=== PATIENT | male | born 1955 | race Caucasian/White ===

== ENCOUNTER → 2017-08-30 11:45 | Outpatient (CLI) | payer BC, SELFPAY ==
--- NOTE | 2017-08-30 11:55 | XR_ITS ---
XR hip LT 2-3V w/pelvis HISTORY: ITS.REASON: LEFT HIP PAIN ORDERING PHYSICIAN: Thania Baker PATIENT AGE: 62 years FINDINGS: No fracture or dislocation is evident. Mild to moderate osteoarthritic changes are present involving the left hip with decrease in the joint space and osteophyte formation. Subcortical cystic change involves the acetabulum laterally. IMPRESSION: Mild to moderate osteoarthritis of left hip
--- NOTE | 2017-08-30 11:56 | XR_ITS ---
XR femur LT 2V CLINICAL INDICATION: ITS.REASON: LEFT HIP PAIN ORDERING PHYSICIAN: Thania Baker PATIENT AGE: 62 years FINDINGS: Mild to moderate osteoarthritic changes are present involving the left hip. No fracture or dislocation. Osteoarthritic changes are present at the knee. No fracture or dislocation. No lytic or blastic change. IMPRESSION: Osteoarthritis of the hip and left knee. No acute findings
== END ==
PROVIDERS: PCP Family Medicine; Visit Provider Nurse Practitioner Family
DX: M25.552 Pain in left hip (principal)
CPT/HCPCS: 73502; 73552

== ENCOUNTER → 2019-03-31 14:05 | Outpatient (CLI) | payer BC, SELFPAY ==
--- NOTE | 2019-03-31 14:08 | CT_ITS ---
PROCEDURE: CT LUNG SCREENING CLINICAL INDICATION: H/O NICOTINE DEPENDENCE Forty-two pack-year smoking history, asymptomatic for lung cancer COMPARISON: No exams were available for comparison TECHNIQUE: The exam was performed on a GE Light Speed [address] scanner using 2.90 mGy CTDI. A low dose helical CT CHEST was performed on a multi-detector scanner. All CT scans at the facility use one or more dose reduction, viz: automated exposure control, ma/kV adjustment per patient size (including targeted exams where dose is matched to indication, i.e. head), or iterative reconstruction technique. The LDCT was performed in a facility that meets the criteria for the screening program. Data regarding this exam was submitted to ACR which is an approved registry. The order for this exam indicates that it came as a result of a lung cancer screening counseling shard decision-making visit that included all the elements required of such a visit including smoking cessation. The radiologist interpreting this exam meets the CMS criteria for the LDCT lung cancer screening program. The exam is reported using the Lung-RADS classification scale and reported to the ACR registry. NOTE: This study was performed for the specific purposes of lung cancer screening and is not an alternative to diagnostic chest CT. RADIATION DOSE: CTDI vol(CT dose Index-volume) = 2.90mG DLP (Dose Length Product) = 106.55 mGcm FINDINGS: Changes of COPD. 4 mm subpleural nodule right upper lobe anteriorly, 7 mm fissural nodule right minor fissure, patchy opacity right lung base anteriorly with ground-glass and semi solid component with some a solid component measuring approximately 5 mm.. Calcified granuloma left upper lobe OTHER FINDINGS: No other pertinent findings evident. IMPRESSION: Lung rads category 3 probably benign findings. Recommend six-month CT follow-up Dictated by: Earnest Mckeon MD 04/01/2019 05:54 Electronically signed by Earnest Mckeon MD in [place] 04/02/2019 07:34
== END ==
PROVIDERS: PCP Family Medicine; Visit Provider Family Medicine
DX: Z87.891 Personal history of nicotine dependence (principal); Z12.2 Encounter for screening for malignant neoplasm of respiratory organs

== ENCOUNTER 2020-06-22 19:06 | Emergency (ER) | payer BC, SELFPAY ==
[2020-06-22 19:15] VITALS: BP 127/87; PULSE 83; RESP 18; TEMP 37; O2SAT 98; BMI 33.5
--- NOTE | 2020-06-22 19:29 | ED_ITS ---
[facility] [place] Clinical Impression: Exposure to COVID-19 virus Disposition: Home, Self-Care Condition on Discharge: Good Instructions: Preventing the Spread of Coronavirus Discharge Instructions Additional Instructions: You have been tested for COVID19. Please isolate as if you are positive until test results received. Referrals: Turner Reynaga MD [Primary Care Provider] - Time of Disposition: 19:31 Medical Decision Making - Lm Inquiry Pt receiving controlled substance: No Orders (Tests/Meds): ORDERS Category Date Time Status Covid-19 Nasal PCR ([facility]) Routine Lab 06/22/20 19:11 [place]dered [facility] [place] - General Stated complaint: covid test Time Seen by Provider: 06/22/20 19:29 - History of Present Illness Provider Complaint: Runny nose, sneezing, sore throat and loss of taste and smell since last night. No fever. Has had COVID19 exposure at work. Onset (ago): day(s) (1) Relieving factors: none Exacerbating factors: none Associated symptoms: denies other symptoms Treatments prior to arrival: none [facility] History - Hepatitis A Screen Attestation statement:: This patient has been screened for Hepatitis A risk factors. I have reviewed the patient's past medical history: Yes ROS Obtained: Yes All systems reviewed & no additional complaints - Constitutional Constitutional: Reports headache(s) - ENT Ears, Nose, Mouth, and Throat: Reports nasal congestion, Reports other (loss of taste and smell) Physical Exam - General General appearance: alert, in no apparent distress - Head Head exam: normocephalic - Eye Eye exam: Present: PERRL - Respiratory Respiratory exam: Present: normal lung sounds bilaterally - Cardiovascular Cardiovascular exam: Present: regular rate, normal rhythm - Neurological Exam Neurological exam: Present: alert, oriented X3 - Psychiatric Psychiatric exam: Present: normal affect, normal mood - Skin Skin exam: Present: warm, dry, intact
[2020-06-22 19:42] VITALS: BP 127/87; PULSE 83; RESP 18; TEMP 37; O2SAT 98
--- NOTE | 2020-06-23 09:39 | PC.NURSE ---
pt notified of positive covid test
== END 2020-06-22 19:43 | disposition home or self-care (01) ==
PROVIDERS: Emergency Provider Physician Assistant; PCP Family Medicine
DX: U07.1 COVID-19 (principal)
CPT/HCPCS: 99202; G0463; U0003

== ENCOUNTER → 2021-02-12 08:32 | Outpatient (CLI) | payer BC, SELFPAY ==
--- NOTE | 2021-02-12 08:43 | XR_ITS ---
PROCEDURE: XR CHEST 2V CLINICAL HISTORY: HX OF BORDERLINE HIGH BLOOD PRESSURE COMPARISON: No exams were available for comparison FINDINGS: The cardiomediastinal silhouette and pulmonary vascularity are within normal limits. The lungs are clear without infiltrates, suspicious nodules, or pleural effusions. Calcified granuloma is present in the left midlung laterally. No acute bony findings. IMPRESSION: No acute finding Dictated by: Earnest Mckeon MD 02/12/2021 13:48 Earnest Mckeon MD in [place] 02/12/2021 13:48
[2021-02-12 08:56] LABS: Microscopic, Urine URINE MICROSCOPIC (MICROSCOPIC)
[2021-02-12 09:26] LABS: Basophils # 0.1 K/mm3 (0-0.2); Basophils % 0.7 % (0.1-2.0); Eosinophils # 0.3 K/mm3 (0.0-0.4); Eosinophils % 2.6 % (0.1-12.0); Hemoglobin 17.2 g/dL (14.1-18.0); Lymphocytes # 2.7 K/mm3 (0.7-4.5); Mean Corpuscular HGB Conc 33.7 g/dL (31.8-35.4); Mean Corpuscular Volume 95.1 fl (80-94); Monocytes # 0.4 K/mm3 (0.1-1.0); Neutrophils # 6.5 K/mm3 (1.8-7.8); Neutrophils % 65.8 % (37.0-80.0); Platelet Count 320 K/mm3 (142-424); Red Blood Count 5.37 M/mm3 (4.60-6.20); Red Cell Distribution Width 12.3 % (11.5-17.5); White Blood Count 9.9 K/mm3 (4.8-10.8)
--- NOTE | 2021-02-12 09:26 | ECG_ITS ---
APPROVED REPORT Exam: Resting ECG HR:69 bpm ECG Measurements Heart Rate [address] 176 P 46 QRSd 78 QRS 21 QT 398 T 91 QTc 426 Conclusion Normal sinus rhythm Isolated q in iii Abnormal ECG Electronically signed by : Geoff Santoro MD 02/12/2021 11:18:01
[2021-02-12 09:48] LABS: Activated Partial Thrombo Time 25.3 seconds (22.5-28.5); INR 0.95 (0.9-1.1); Prothrombin Time 10.1 seconds (9.2-12.1)
[2021-02-12 10:00] LABS: Appearance,Urine CLEAR (Clear); Bilirubin,Urine Negative (Negative); Blood, Urine TRACE-I (Negative); Color,Urine YELLOW (Yellow); Glucose,Urine (UA) Negative (Negative); Ketones,Urine Negative (Negative); Leukocyte Esterase,Urine Negative (Negative); Nitrate,Urine Negative (Negative); PH,Urine 5.5 (5.0-8.5); Protein,Urine Negative (Negative); Specific Gravity, Urine >= 1.030 (1.005-1.030); Urobilinogen,Urine 0.2 EU/dl (0.2)
[2021-02-12 10:38] LABS: RBC,Urine Occasional #/hpf (0-3); Squamous Epithelial Cell,Urine Occasional #/hpf (0-5)
[2021-02-12 10:44] LABS: Alanine Aminotransferase 39 U/L (12-78); Albumin Level 4.4 g/dl (3.5-5.0); Albumin/Globulin Ratio 1.5 (1.1-1.8); Alkaline Phosphatase 97 U/L (38-126); Anion Gap 13.9 mEq/L (5-15); Aspartate Amino Transferase 26 U/L (17-59); Bilirubin,Total 1.1 mg/dl (0.2-1.3); Blood Urea Nitrogen 20 mg/dl (9-20); Calcium 9.5 mg/dl (8.4-10.2); Carbon Dioxide 28 mmol/L (22.0-30.0); Chloride 105 mmol/L (98-107); Estimated Glomerular Filt Rate 75 ml/min (>60); GFR (African American) 91 ML/MIN (>60); Glucose 100 mg/dl (74-100); Potassium 4.9 mmoL/L (3.5-5.1); Sodium 142 mmol/L (136-145); Total Protein,Serum 7.4 g/dl (6.3-8.2)
[2021-02-13 11:28] LABS: Hemoglobin A1C 5.6 % (4.0-6.0)
[2021-02-14 12:17] LABS: Prealbumin 26 mg/dL (10-36)
[2021-02-15 09:24] LABS: Miscellaneous Test 233
== END ==
PROVIDERS: PCP Family Medicine; Visit Provider Family Medicine
DX: Z01.818 Encounter for other preprocedural examination (principal)
CPT/HCPCS: 36415; 71046; 80053; 81001; 83036; 84134; 85025; 85610; 85730; 93005

== ENCOUNTER → 2021-03-26 07:47 | Outpatient (CLI) | payer BC, SELFPAY ==
[2021-03-26 08:28] LABS: Basophils # 0.1 K/mm3 (0-0.2); Eosinophils # 0.3 K/mm3 (0.0-0.4); Eosinophils % 3.3 % (0.1-12.0); Hematocrit 49.1 % (42.0-52.0); Hemoglobin 16.3 g/dL (14.1-18.0); Lymphocytes # 2.2 K/mm3 (0.7-4.5); Lymphocytes % 28.1 % (10-50); Mean Corpuscular HGB Conc 33.1 g/dL (31.8-35.4); Mean Corpuscular Hemoglobin 32.2 pg (27.0-31.2); Mean Corpuscular Volume 97.1 fl (80-94); Mean Platelet Volume 8.6 fl (7.4-10.4); Monocytes # 0.4 K/mm3 (0.1-1.0); Monocytes % 4.7 % (1.7-9.3); Neutrophils # 4.9 K/mm3 (1.8-7.8); Platelet Count 277 K/mm3 (142-424); Red Blood Count 5.06 M/mm3 (4.60-6.20); Red Cell Distribution Width 13.2 % (11.5-17.5); White Blood Count 7.7 K/mm3 (4.8-10.8)
[2021-03-26 08:33] LABS: Activated Partial Thrombo Time 26.9 seconds (22.8-30.6); INR 0.96 (0.9-1.1); Prothrombin Time 10.9 seconds (10.1-12.5)
[2021-03-26 08:38] LABS: Alanine Aminotransferase 60 U/L (12-78); Albumin Level 4.5 g/dl (3.5-5.0); Albumin/Globulin Ratio 1.7 (1.1-1.8); Alkaline Phosphatase 99 U/L (38-126); Anion Gap 12.5 mEq/L (5-15); Aspartate Amino Transferase 28 U/L (17-59); Bilirubin,Total 1.2 mg/dl (0.2-1.3); Blood Urea Nitrogen 23 mg/dl (9-20); Calcium 9.8 mg/dl (8.4-10.2); Carbon Dioxide 26 mmol/L (22.0-30.0); Chloride 104 mmol/L (98-107); Estimated Glomerular Filt Rate 75 ml/min (>60); GFR (African American) 91 ML/MIN (>60); Globulin 2.7 g/dL (1.3-3.2); Glucose 108 mg/dl (74-100); Potassium 4.5 mmoL/L (3.5-5.1); Sodium 138 mmol/L (136-145); Total Protein,Serum 7.2 g/dl (6.3-8.2)
[2021-03-27 08:23] LABS: Prealbumin 27 mg/dL (10-36)
== END ==
PROVIDERS: Visit Provider Orthopaedic Surgery
DX: Z01.812 Encounter for preprocedural laboratory examination (principal); D69.9 Hemorrhagic condition, unspecified
CPT/HCPCS: 36415; 80053; 83036; 84134; 85025; 85610; 85730

== ENCOUNTER → 2023-02-25 12:49 | Outpatient (CLI) | payer BC, MEDICARE, SELFPAY | PROVIDERS: PCP Family Medicine; Visit Provider Family Medicine | DX: G47.10 Hypersomnia, unspecified (principal); R06.83 Snoring; R03.0 Elevated blood-pressure reading, without diagnosis of hypertension; E66.9 Obesity, unspecified; Z68.37 Body mass index [BMI] 37.0-37.9, adult | CPT/HCPCS: G0399 ==

== ENCOUNTER → 2023-03-02 14:53 | Outpatient (POV) | payer BC, MEDICARE, SELFPAY | PROVIDERS: Visit Provider Dermatology | DX: Z00.00 Encounter for general adult medical examination without abnormal findings (principal) ==

== ENCOUNTER 2024-08-09 06:07 | Day surgery (SDC) | payer BC, SELFPAY ==
[2024-08-07 16:06] VITALS: BMI 35.9
[2024-08-09 06:22] VITALS: BP 138/91; PULSE 102; RESP 18; TEMP 36.4; O2SAT 96
--- NOTE | 2024-08-09 06:45 | EXP.ANES.CKL ---
[facility] Disclaimer: The information contained in this section may have been updated after the patient was seen, as this information can be updated by other users. Medical History Hypertension Surgical History History of bilateral knee replacement Family History Other No significant family history Social History (Updated 08/09/24 @ 06:27 by Kay Edwards RN) Smoking Status: Current every day smoker alcohol intake: never substance use type: denies use current occupational status: employed Travel in the last 8 weeks: None caffeine: Yes [facility] Anesthesia Checklist Patient Identification Patient Identification: Arm Band and Family Structural Data Admitted From: Home Planned Operative Procedure/s: Colonoscopy Consent for Planned Operative Procedure(s) Verified: Yes Verified Documents: Surgical Consent and History and Physical NPO Status Verified Time NPO: 00:00 Additional verifications Patient : No Anesthesia Reactions: No Hx Blood Transfusions: No Blood Transfusion Reaction: No Cephalosporin Allergy: No Previous Colonoscopy: No Airway Assessment Mallampati Score:: Class II C-Spine Mobility Assessed: Yes TMJ Mobility Assessed: Yes Neurological Assessment Level of Consciousness: Awake, Alert, Appropriate and Follows Commands Hx Seizures: No Numbness or tingling in extremities: No Anesthesia Plan Anesthesia Risk discussed: Yes ASA Class: II Anesthesia Type: MAC
[2024-08-09] MEDS: LACTATED RINGERS 1000ML 1,000 ML 50 ML IV (07:01)
--- NOTE | 2024-08-09 07:48 | EXP.HP ---
History of Present Illness *Admission Date: 08/09/24 *Reason for visit:: Screening *History of present illness: Mr. Orlando is a 69-year-old gentleman who is here for initial screening colonoscopy. The examination is deemed medically necessary for screening colonoscopy. The patient has been seen, interviewed and examined prior to the procedure by both myself and the anesthesia provider. [facility] Disclaimer: The information contained in this section may have been updated after the patient was seen, as this information can be updated by other users. Medical History (Updated 08/09/24 @ 07:49 by Guille Olmstead II, MD) Hypertension Surgical History History of bilateral knee replacement Family History Other No significant family history Social History (Updated 08/09/24 @ 06:47 by Geoffrey Martins CRNA) Smoking Status: Current every day smoker alcohol intake: never substance use type: denies use current occupational status: employed Travel in the last 8 weeks: None caffeine: Yes Have you lived/traveled outside US in past 30 days?: No Contact w/someone who lives/traveled outside US past 30 days?: No Exposure to someone with infectious disease in past 14 days?: No Do you have a fever (greater than 100.4 F or 38 C)?: No Have you tested positive for COVID-19: No Exposed to someone with COVID-19 in past 14 days?: No Do you have a sore throat?: No Do you have a cough?: No Do you have any weakness?: No Are you experiencing any nausea/vomitting?: No Do you have any diarrhea?: No Are you experiencing any unusual bleeding?: No Do you have any muscle aches/pain?: No Do you have any abdominal pain?: No Are you experiencing loss of taste or smell?: No Review of Systems Review of Systems Review of systems (narrative): Negative *Cardiovascular Comments: Negative *Gastrointestinal Comments: Negative *Genitourinary Comments: Negative *Musculoskeletal Comments: Negative *Neurologic Comments: Negative Meds Home Medications and Allergies Home Medications ?Medication ?Instructions ?Recorded ?Confirmed ?Type sodium sul 1.479 gram-potas ch See Rx Instructions PO PER PKG DIR 07/26/24 Rx 0.188 gram-magnes sul 0.225 gram colonscopy #24 tabs tablet (Sutab) lisinopril 10 mg tablet 10 mg PO DAILY 08/07/24 08/09/24 History loratadine 10 mg tablet (Claritin) 10 mg PO DAILY 08/09/24 08/09/24 History montelukast 10 mg tablet 10 mg PO DAILY 08/09/24 08/09/24 History (Singulair) New Prescriptions to Start Prescriptions: Allergies Allergy/AdvReac Type Severity Reaction Status Date / Time No Known Allergies Allergy Verified 08/09/24 06:19 Exam Data for Last 24 hours Vital signs and Labs for Last 24 Hours: Temp Pulse Resp BP Pulse Ox O2 Del Method 97.6 F 102 H 18 138/91 H 96 Room Air 08/09/24 06:22 08/09/24 06:22 08/09/24 06:22 08/09/24 06:22 08/09/24 06:22 08/09/24 06:22 I & O for Last 24 hours: Intake & Output 08/06/24 08/07/24 08/08/24 08/09/24 23:59 23:59 23:59 23:59 Weight 265 lb *Routine HEENT Exam Head: Present normocephalic Eye: Present EOMI and PERRL ENT: Present mucous membranes moist *Routine Neck Exam Neck: Present supple *Routine Respiratory Exam Respiratory: Present CTA bilaterally *Routine Cardiovascular Exam Cardiovascular: Present RRR *Routine Abdominal Exam Abdominal: Present soft and normoactive bowel sounds; Absent tenderness *Routine Rectal Exam Rectal:: deferred *Routine Genitalia Exam Genitalia:: deferred *Routine Extremities Exam Extremities: Absent cyanosis, clubbing or edema *Routine Skin Exam Skin: Present warm; Absent rash *Routine Neurological Exam Neurological: Present alert and oriented X3 Assessment and Plan *Assessment and plan (1) Screening for colon cancer: Status: Acute Category: Medical Code(s): Z12.11 - Encounter for screening for malignant neoplasm of colon Plan A/P: 1. Screening for colon cancer is the preprocedural diagnosis. The patient will be anesthetized/sedated using MAC sedation. The patient has been seen and examined. Cardiac and lung assessment prior to the examination is stable. Proceed with planned screening colonoscopy
--- NOTE | 2024-08-09 07:50 | P.PCN_ITS ---
[facility] Procedure Note Date: 08/09/24 Time: 08:12 Procedure Note:: Colonoscopy Procedure Report: Colonoscopy with cold snare polypectomy, snare cautery and Endo Clip placement Endoscopist: Guille Olmstead II, MD Referring physician: Turner Reynaga MD Date of Procedure: August 09, 2024 Equipment: Olympus 190 variable stiffness pediatric colonoscope Sedation: MAC sedation Indication: Mr. Orlando is a 69-year-old gentleman who is here for initial screening colonoscopy. He reports no abdominal pain, weight loss, change in his bowel habits or rectal bleeding. He reports no family history of colon cancer. Procedure: Prior to the procedure, a history and physical exam was performed, and patient's medications and allergies were reviewed. The risks, benefits and alternatives of the sedation and procedure were discussed with the patient. All questions were answered and informed consent was obtained. The patient was brought to the procedure room. Patient identification and proposed procedure were verified by the physician and the nurse. The patient was placed in a left lateral decubitus position and the scope was passed under direct vision. Throughout the procedure, the patient's blood pressure, pulse, and oxygen saturations were monitored continuously. The colonoscopy was accomplished without difficulty. The patient tolerated the procedure well. Findings: On digital rectal examination there was normal rectal tone. There were no external hemorrhoids. There were external hemorrhoidal tags with healed prior posterior midline anal fissure. The prostate was 2+, smooth, soft, symmetric without nodules. The colonoscope was introduced through the anal canal to the rectum and advanced to the cecum. The ileocecal valve and appendiceal orifice were identified. The scope was advanced a short distance into the ileum which appeared grossly normal. The scope was then withdrawn into the colon. There were 10 polyps (descending x 5 (3, 4, 4, 5 and 6 mm) and sigmoid x 5 (4, 4, 11, 13 and 15 mm)). The 3 larger sigmoid polyps were pedunculated and removed via snare cautery. 2 of the polypectomy stalks were closed with a single Endo Clip to provide hemostasis and prevent post polypectomy bleeding. The smaller polyps were removed via cold snare polypectomy. The sigmoid polyps were proximal, mid and distal and labeled jars sigmoid #1, sigmoid #2 and sigmoid #3. The remaining cecum, ascending, transverse, descending, sigmoid and rectum were grossly normal. There were no other mucosal abnormalities identified. Upon retroflexion within the rectum there were grade 2 internal hemorrhoids. There was a hypertrophied anal papilla. The preparation was excellent throughout with Deforest Preparation Score of 9. The cecal time was 16 minutes. Impression: 1. Colonic polyps x 10 (with 3 larger sigmoid pedunculated polyps (11, 13 and 15 mm)) 2. Grade 2 internal hemorrhoids with hypertrophied anal papilla Plan: I will follow-up the polyp histology and recommend repeat surveillance colonoscopy again in 3 years based upon the pathology. I would encourage psyllium bulking fiber supplementation on a long-term daily maintenance basis.
[2024-08-09 07:53] VITALS: O2SAT 95
[2024-08-09 08:13] VITALS: BP 91/77; PULSE 86; RESP 16; TEMP 36.4; O2SAT 91
[2024-08-09 08:23] VITALS: BP 107/69; PULSE 85; RESP 18; O2SAT 96
[2024-08-09 08:33] VITALS: BP 117/77; PULSE 82; RESP 16; O2SAT 97
[2024-08-09 08:43] VITALS: BP 115/80; PULSE 81; RESP 16; O2SAT 95
== END 2024-08-09 08:45 | disposition home or self-care (01) ==
PROVIDERS: PCP Family Medicine; Visit Provider Internal Medicine Gastroenterology
PROC: 0DJD8ZZ Inspection of Lower Intestinal Tract, Via Natural or Artificial Opening Endoscopic (ICD-10-PCS; CPT 45378; principal; 2024-08-09 07:30)
DX: K63.5 Polyp of colon (principal); K64.1 Second degree hemorrhoids; Z12.11 Encounter for screening for malignant neoplasm of colon
CPT/HCPCS: 45385; J7120

== ENCOUNTER 2024-08-24 15:13 | Outpatient (CLI) | payer BC, MEDICARE, SELFPAY ==
--- NOTE | 2024-08-24 15:20 | XR_ITS ---
FINAL REPORT CLINICAL HISTORY: LUMBAGO WITH SCIATICA, LT SIDE COMPARISON: None FINDINGS: LUMBAR SPINE: 5 views were obtained. There is moderate diffuse disc space narrowing in the lumbar spine along with spondylosis, most pronounced at the L5-S1 level. There is suspected canal stenosis and neural foraminal narrowing at several levels in the lower lumbar spine. Correlation with MRI is suggested for further evaluation is indicated. IMPRESSION: Moderate diffuse degenerative change, with suspected canal stenosis and neural foraminal narrowing in the lower lumbar spine. Recommend correlation with MRI for further evaluation as indicated. Reviewed, Interpreted and Dictated by Marty Munoz MD Transcribed by April Huynh Authenticated and [facility]
== END 2024-08-24 23:59 | disposition home or self-care (01) ==
LOC: RAD 15:17
PROVIDERS: PCP Family Medicine; Visit Provider Family Medicine
DX: M54.42 Lumbago with sciatica, left side (principal)
CPT/HCPCS: 72110

== ENCOUNTER 2024-09-11 17:00 | Outpatient (CLI) | payer BC, SELFPAY ==
--- NOTE | 2024-09-11 17:02 | MR_ITS ---
PROCEDURE INFORMATION: Exam: MR Lumbar Spine Without Contrast Exam date and time: 09/11/2024 5:04 PM Age: 69 years old Clinical indication: Pain; Lumbago with sciatica; Left; Additional info: Lumbago with left sciatica TECHNIQUE: Imaging protocol: Magnetic resonance imaging of the lumbar spine without contrast. COMPARISON: X-ray lumbar spine 08/24/2024. FINDINGS: Bones/joints: The lumbar vertebral bodies are normal in height. The lowest full sized lumbar vertebral body is labeled as L5 for the purposes of this dictation. Mild retrolisthesis of L5 on S1. Spinal cord: The distal end of the conus medullaris ends at L1-L2, normal in position. Multilevel findings: Degenerative changes are noted diffusely within the lumbar spine, with a decrease in the T2 signal intensity of the discs, as well as disc bulge/osteophyte complexes. Additional degenerative changes are visualized involving the lower thoracic spine. A decrease in disc height is visualized at L1-L2 and L5-S1. L1-L2: Bilateral facet arthropathy. A broad-based disc bulge is visualized causing minimal narrowing of the thecal sac. A left-sided disc protrusion is identified, with narrowing of the left lateral recess and moderate left neural foraminal narrowing. There is no significant narrowing of the right neural foramen. L2-L3: Bilateral facet arthropathy with hypertrophy of the ligamentum flavum. A broad-based disc bulge is visualized with prominence of posterior epidural fat and severe narrowing of the thecal sac. The AP dimension of thecal sac measures 0.7 cm. There is narrowing of both lateral recesses. Mild bilateral foraminal narrowing is identified. L3-L4: Bilateral facet arthropathy. A broad-based disc bulge is visualized with prominence of posterior epidural fat and moderate to severe narrowing of the thecal sac. There is narrowing of the lateral recesses, right side greater than left. Moderate bilateral neural foraminal narrowing is identified. L4-L5: Bilateral facet arthropathy. A broad-based disc bulge/osteophyte complex is identified, with minimal narrowing of the thecal sac. There is narrowing of both lateral recesses. Severe bilateral neural foraminal narrowing is visualized, with encroachment on the bilateral exiting L4 nerve roots. L5-S1: Bilateral facet arthropathy. Mild Modic endplate changes are visualized. Disc bulging with central protrusion are identified causing narrowing the anterior epidural fat. There is no significant spinal canal stenosis. There is narrowing of the left lateral recess. Severe bilateral neural foraminal narrowing is identified, with compression of the exiting right L5 nerve root. There is encroachment on the exiting left L5 nerve root. Soft tissues: Mild edema is visualized within the subcutaneous tissues posteriorly. Kidneys and ureters: Exophytic to the midpole of the right kidney, there is a 5.8 cm T2 hyperintense cyst or cystic lesion partially visualized. Nonspecific perinephric stranding is identified bilaterally. IMPRESSION: 1. Mild retrolisthesis of L5 on S1. 2. Degenerative changes are noted diffusely within the lumbar spine, as described above. Additional degenerative changes are visualized involving the lower thoracic spine. 3. Severe narrowing of the thecal sac at L2-L3, with moderate to severe thecal sac narrowing at L3-L4. There is minimal narrowing of the thecal sac at L1-L2 and L4-L5. A central protrusion at L5-S1 causes narrowing of the anterior epidural fat. 4. Neural foraminal narrowing at all lumbar levels. There is compression of the exiting right L5 nerve root. Encroachment is also noted on the bilateral exiting L4 and left L5 nerve roots. A left-sided disc protrusion is identified at L1-L2, with narrowing of the left lateral recess and moderate left neural foraminal narrowing. 5. Exophytic to the midpole of the right kidney, there is a 5.8 cm cyst or cystic lesion partially visualized. Follow-up ultrasonography is recommended, as clinically indicated. 6. Additional findings described above.
== END 2024-09-11 23:59 | disposition home or self-care (01) ==
LOC: RAD 17:01
PROVIDERS: PCP Family Medicine; Visit Provider Family Medicine
DX: M51.362 Other intervertebral disc degeneration, lumbar region with discogenic back pain and lower extremity pain (principal)
CPT/HCPCS: 72148

== ENCOUNTER 2024-12-27 08:58 | Outpatient (POV) | payer BC, SELFPAY ==
--- OUTSIDE RECORDS SUMMARY | 2024-12-06 05:45 | XMS_ITS ---
Author Organization [facility] Address [address] [place] [id number] Care Team Providers Care Oil Spot Washer Name Role Phone Zuhair Reynaga Primary Care Provider ZUHAIR REYNAGA Unavailable Unavailable Allergies No Known Allergies Results Component Value Reference Range Notes P-Basic Metabolic Panel (BMP ) Reviewed date:12/07/2024 09:40:48 AM Interpretation:bun 24 Performing Lab: Notes/Report: Test performed by [facility] [address] [place] [address] , [address], [place] [address] Sebastian Motta MD, Blade Operator CLIA: [id number] Sodium 138 135-145 mmol/L Potassium 4.6 3.5-5.3 mmol/L Chloride 105 97-108 mmol/L CO2 22 20-32 mmol/L Glucose 82 65-99 mg/dL BUN 24 8-23 mg/dL Creatinine 1.06 0.70-1.30 mg/dL Calcium 9.4 8.6-10.4 mg/dL eGFR by Creatinine 77 >59 mL/min/1.73m2 P-Lipid Panel Reviewed date:12/07/2024 09:40:48 AM Interpretation:chol 202, trigs 280, hdl 26, chol/hdl 7.77, non-hdl 176, ldl/hdl 4.6 Performing Lab: Notes/Report: Test performed by [facility] [address] [place], [place] [address] [place] , [address], [place] [address] Sebastian Motta MD, Blade Operator CLIA: [id number] Cholesterol 202 <200 mg/dL Triglycerides 280 <150 mg/dL HDL Cholesterol 26 >39 mg/dL Cholesterol / HDL Ratio 7.77 0.00-4.99 Ratio Non-HDL Cholesterol 176 <130 mg/dL LDL Cholesterol (Calculation) 120 <130 mg/dL LDL Cholesterol Levels* Less than 100 mg/dL Optimal 100 to 129 mg/dL Near Optimal/ Above Optimal 130 to 159 mg/dL Borderline High 160 to 189 mg/dL High 190 mg/dL and above Very High * Categories as recommended by the 2004 ATPIII guidelines LDL/HDL Ratio 4.6 <3.3 Ratio LDL Cholesterol Patient History Test Date: 09/15/2023 LDL Results: 140 Units: mg/dL % Change: - Test Date: 12/06/2024 LDL Results: 120 Units: mg/dL % Change: -14% P-PSA Reviewed date:12/07/2024 09:40:48 AM Interpretation:Normal Performing Lab: Notes/Report: Test performed by [facility], [address], [place] [address] Sebastian Motta MD, Blade Operator CLIA: [id number] PSA 2.03 <4.00 ng/mL Please note this is an ultrasensitive PSA assay with a lower limit of detection of 0.014 ng/mL. This test is performed by the Brittany ECLIA methodology. Values obtained with different assay methods or kits cannot be directly compared. P-Microalbumin/Creatinine, R andom Urine Sample Reviewed date:12/07/2024 09:40:48 AM Interpretation:Normal Performing Lab: Notes/Report: Test performed by [facility] [address] [place] [address] , [address], [place] [address] Sebastian Motta MD, Blade Operator CLIA: [id number] Albumin/Creatinine Ratio, Urine 3 0-30 ug/mg Microalbumin, Urine, Random 0.5 Creatinine, Urine 186.3 REASON FOR VISIT 6 month check Medications Medication SIG (Take, Route, Frequency, Duration) Notes Start Date End Date Status CPAP machine and supplies - as directed AutoPAP 10/30 as directed 03/03/2023 Active CPAP Supplies - as directed as directed 12/06/2024 Active Montelukast Sodium 10 MG 1 tablet Orally Once a day 09/27/2023 Active Loratadine 10 MG 1 tablet Orally Once a day 09/27/2023 Active Sildenafil Citrate 50 MG 1 or 2 tab(s) o rally once a day as needed 07/09/2022 Active Irbesartan 150 MG 1 tablet Orally Once a day 08/25/2023 Active Vital Signs Weight 266.6 lbs 12/06/2024 Blood pressure systolic 128 mm Hg 12/07/19 25 Blood pressure diastolic 80 mm Hg 025 Heart Rate 84 /min 12/06/2024 Height 70.50 in 12/06/2024 BMI 37.71 kg/m2 12/06/2024 Encounters Encounter Location Date Provider Diagnosis [facility] [address] [place], [place] [id number] 12/06/2024 Zuhair Reklaw Essential hypertensi on I10 ; Allergic rhinitis, unspecified seasonality, unspecified trigger J30.9 ; Obstructive sleep apnea G47.33 ; Non morbid obesity E66.9 and Prostate cancer screening Z12.5 Assessments Encounter Date Diagnosis (ICD Code) Assessment Notes Treatment Notes Treatment Clinical Notes Section Notes 12/06/2024 Essential hypertension (ICD-10 - I10) 12/06/2024 Allergic rhinitis, unspecified seasonality, unspecified trigger (ICD-10 - J30.9) 12/06/2024 Obstructive sleep apnea (ICD-10 - G47.33) 12/06/2024 Non morbid obesity (ICD-10 - E66.9) 12/06/2024 Prostate cancer screening (ICD-10 - Z12.5) Plan Of Treatment Medication Medication Name Sig Start Date Stop Date Notes CPAP Supplies - as directed as directed 12/06/2024 Montelukast Sodium 10 MG 1 tablet Orally Once a day 2023 Loratadine 10 MG 1 tablet Orally Once a day 09/27/2023 Irbesartan 150 MG 1 tablet Orally Once a day 08/25/2023 Next Appt Details Follow Up: 6 Months, Reason: Provider Name:Zuhair guthrie, 01/22/2025 09:30:00 AM, [facility] [address] [facility], [facility] [address], [place], [place], [id number], Provider Name:Zuhair guthrie, 2025 09:15:00 AM, [address] [facility] [address] [facility], [facility] [address], [place], [place], [id number], Progress Notes * ARACELIS BERGMAN ADOB:1955 (69 yo M)Acc No.[id number]:12/06/2024 Progress Notes Patient: ARACELIS TENORIO Account Number:[id number] Provider: Zulema Reynaga M.D. :1955 A ge:69 Y S ex:Male Date:12/06/2024 Address:[address] [place] [address] [place] [facility] Subjective: * Chief Complaints: * 1 . 6 month check. * HPI: C ardiology: 69 year old male presents with c/o Blood Pressure Elevated P t here for 6 mo f/u on hypertension. Pt states he is doing well and does not have any concerns?. * ROS: D ERMATOLOGY: no R forrest. n o H abhishek. G ASTROENTEROLOGY: no N ausea. n o V omiting. U ROLOGY: no B lood in urine. n o F requent urination. ? * Medical History: V itamin B 12 deficiency, Vitamin D deficiency, LT Hip Arthritis, Chronic back pain, Lumbar Disc Disease, MRI 2024, Bilateral Knee Osteoarthritis, Sleep Apnea, Dx: 2022, Lumbar facet arthropathy, Colon polyps. * Surgical History: R T Knee Replacement 02/19/2021, LT Knee Replacement 04/15/2021, colonoscopy 2024. * Hospitalization/Major Diagno stic Procedure: D enies Past Hospitalization. * Family History: F ather: alive. M other: . P aternal Grand Father: . P aternal Grand Mother: . M aternal Grand Father: . M aternal Grand Mother: .?2 brother(s) , 1 sister(s) - healthy. 2 son(s) - healthy. . * Social History: C URRENT TOBACCO USE: No . C affeine: yes, frequency:daily. Exercise: no. Home smoke detector use: yes. Marital Status: . Occupation: franco/ rear load truck driver. Past smoking status: yes, PPD: , years: ,determination:1pack, 29yrs. Recreational drug use: no. Alcohol: no. Sexually active: yes. Travel ouside [place]: no. * Medications: T aking Sildenafil Citrate 50 MG Tablet 1 or 2 tab(s) orally once a day as needed , Taking Irbesartan 150 MG Tablet 1 tablet Orally Once a day , Taking Montelukast Sodium 10 MG Tablet 1 tablet Orally Once a day , Taking Loratadine 10 MG Tablet 1 tablet Orally Once a day , Taking CPAP machine and supplies - - as directed AutoPAP 10/30 as directed , Medication List reviewed and reconciled with the patient * Allergies: N .K.D.A. Objective: * Vitals: W t: 266.6, Temp: 97.7, BP: 128/80, HR: 84, Nurse: jacob, Ht: 70.50, BMI:37.71. * Examination: G eneral Examination: General Appearance: N AD. H eart: R SR. L ungs:?clear to auscultation. E xtremities: n o leg edema. Assessment: * Assessment: 1. E ssential hypertension - I10 (Primary) 2 . A llergic rhinitis, unspecified seasonality, unspecified trigger - J30.9 3 . O bstructive sleep apnea - G47.33 4 . N on morbid obesity - E66.9 5 . P rostate cancer screening - Z12.5 Plan: * Treatment: Value Reference Range B UN 24 H 8-23 - mg/dL * C alcium 9.4 8.6-10.4 - mg/dL * C hloride 105 97-108 - mmol/L * C O2 22 20-32 - mmol/L * C reatinine 1.06 0.70-1.30 - mg/dL * G lucose 82 65-99 - mg/dL * P otassium 4.6 3.5-5.3 - mmol/L * S odium 138 135-145 - mmol/L * e GFR by Creatinine 77 >59 - mL/min/1.73m2 * Elvira [place] 12/07/2024 09:4 0:19 AM EDT > See phone encounter ?LAB: P-Lipid Panel (Collection Date & Time - 12/06/2024 09:21 AM)?chol 202, trigs 280, hdl 26, chol/hdl 7.77, non-hdl 176, ldl/hdl 4.6* Value Reference Range C holesterol / HDL Ratio 7.77 H 0.00-4.99 - Ratio * C holesterol 202 H <200 - mg/dL * H DL Cholesterol 26 L >39 - mg/dL * L DL Cholesterol (Calculation) 120 <130 - mg/d L * L DL/HDL Ratio 4.6 H <3.3 - Ratio * N on-HDL Cholesterol 176 H <130 - mg/dL * T riglycerides 280 H <150 - mg/dL * Elvira Robertson 12/07/2024 09:4 0:19 AM EDT > See phone encounter ?LAB: P-Microalbumin/Creatinine, Random Urine Sample (Collection Date & Time - 12/06/2024 09:21 AM)?Normal* Value Reference Range A lbumin/Creatinine Ratio, Urine 3 0-30 - ug /mg * C reatinine, Urine 186.3 - mg/dL * M icroalbumin, Urine, Random 0.5 - mg/dL * Elvira Robertson 12/07/2024 09:4 0:19 AM EDT > See phone encounter 2.?Allergic rhinitis, unspecified seasonality, unspecified trigger? Continue Montelukast Sodium Tablet, 10 MG, 1 tablet, Orally, Once a day;?Continue Loratadine Tablet, 10 MG, 1 tablet, Orally, Once a day.?? 3.?Obstructive sleep apnea? Start CPAP Supplies -, -, as directed, as directed, 1, Refills 0.??4.?Prostate cancer screening?LAB: P-PSA (Collection Date & Time - 12/06/2024 09:21 AM)?Normal* Value Reference Range P SA 2.03 <4.00 - ng/mL * Elvira Robertson 12/07/2024 09:4 0:19 AM EDT > See phone encounter * Procedure Codes: 1 036F TOBACCO NON-USER, 3074F SYST BP LT 130 MM HG, 3079F DIAST BP 80-89 MM HG * Follow Up: 6 Months * Images: Billing Information: * Visit Code: 85774 Office Visit, Est Pt., Level 4. * Procedure Codes: 1036F TOBACCO NON-USER. 3074F SYST BP LT 130 MM HG. 3079F DIAST BP 80-89 MM HG. * Electronic signature of Neelam Reynaga MD on 12/27/2024 at 09:03 AM EDT Sign off status: Pending * Provider: Zulema Reynaga M.D. Date: 0 12/06/2024 Generated for Thea thurman/Brittani/eTcirosmitting on: 0 12/27/2024 09:03 AM EDT History and Physical Notes * HPI (History of Present Illness) Category Sub-Category Detail Notes Category Not es Cardiology Blood Pressure Elevated Pt here for 6 mo f/u on hypertension. Pt states he is doing well and does not have any concerns Examination Category Sub-Category Detail Notes Category Not es General Examination Heart: RSR Lungs: clear to auscultatio n Extremities: no leg edema General Appearance: NAD
--- OUTSIDE RECORDS SUMMARY | 2024-12-27 09:03 | XMS_ITS | Patient Health Record ---
Author Organization [facility] Address [address] [place] [id number] Care Team Providers Care It Application Architect Name Role Phone Juhi Zuhair Primary Care Provider ZUHAIR GREEN Unavailable Unavailable MattPacheco Unavailable [phone] Allergies No Known Allergies Results Component Value Reference Range Notes P-Basic Metabolic Panel (BMP ) Reviewed date:12/07/2024 09:40:48 AM Interpretation:bun 24 Performing Lab: Notes/Report: Test performed by [facility] [address] [place] [address] , [place] [address] Sebastian Motta MD, C D Stripper CLIA: [id number] Sodium 138 135-145 mmol/L Potassium 4.6 3.5-5.3 mmol/L Chloride 105 97-108 mmol/L CO2 22 20-32 mmol/L Glucose 82 65-99 mg/dL BUN 24 8-23 mg/dL Creatinine 1.06 0.70-1.30 mg/dL Calcium 9.4 8.6-10.4 mg/dL eGFR by Creatinine 77 >59 mL/min/1.73m2 P-Lipid Panel Reviewed date:12/07/2024 09:40:48 AM Interpretation:chol 202, trigs 280, hdl 26, chol/hdl 7.77, non-hdl 176, ldl/hdl 4.6 Performing Lab: Notes/Report: Test performed by [facility] [address] [place], [place] [address] [place] , [address], [place] [address] Sebastian Motta MD, C D Stripper CLIA: [id number] Cholesterol 202 <200 mg/dL Triglycerides 280 <150 [...] Interpretation:Normal Performing Lab: Notes/Report: Test performed by [facility] [address] [place], [place] [address] Sebastian Motta MD, C D Stripper CLIA: [id number] PSA 2.03 <4.00 ng/mL Please note this is an ultrasensitive PSA assay with a lower limit of detection of 0.014 ng/mL. This test is performed by the Brittany ECLIA methodology. Values obtained with different assay methods or kits cannot be directly compared. P-Microalbumin/Creatinine, R andom Urine Sample Reviewed date:12/07/2024 09:40:48 AM Interpretation:Normal Performing Lab: Notes/Report: Test performed by [facility] , [address], [place] [address] Sebastian Motta MD, C D Stripper CLIA: [id number] Albumin/Creatinine Ratio, Urine 3 0-30 ug/mg Microalbumin, Urine, Random 0.5 Creatinine, Urine 186.3 colonoscopy Reviewed date:10/31/2024 10:30:34 PM Interpretation:Numerous polyps Performing Lab: Notes/Report: Numerous polyps Pathology evaluation Reviewed date:08/11/2024 01:22:38 PM Interpretation:Negative, see colonoscopy Performing Lab: Notes/Report: Negative, see colonoscopy Cologuard Reviewed date:05/24/2024 09:05:40 AM Interpretation:Positive Performing Lab: Notes/Report: Positive Cologuard Positive MRI : Spine, Lumbosacral, wi thout contrast Reviewed date:09/12/2024 09:37:05 AM Interpretation:Abnormal Performing Lab: Notes/Report: Abnormal Urinalysis - Inhouse Reviewed date:2024 02:19:17 PM Interpretation: Performing Lab: Notes/Report: Color/Clarity yellow/clear Leuk Neg Nitrite Neg Urobili 3.2 Protein Neg pH 5.5 Blood Trace-Intact Sp. Gr. 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 Perez Referral Priority Routine Medications Medication SIG (Take, Route, Frequency, Duration) Notes Start Date End Date Status CPAP machine and supplies - as directed AutoPAP 10/30 as directed 03/03/2023 Active Irbesartan 150 MG 1 tablet Orally Once a day 08/25/2023 Active CPAP Supplies - as directed as directed 12/06/2024 Active Montelukast Sodium 10 MG 1 tablet Orally Once a day 09/27/2023 Active Loratadine 10 MG 1 tablet Orally Once a day 09/27/2023 Active Sildenafil Citrate 50 MG 1 or 2 tab(s) o rally once a day as needed 07/09/2022 Active Immunizations Vaccine Route Administration Date Status Comme nts COVID 19 Moderna Unknown 09/18/2020 Administered COVID 19 Moderna Unknown 10/23/2020 Administered COVID 19 Moderna Unknown 06/09/2021 Administered Fluzone High Dose (65yr and older) IM Intramuscular 04/15/2023 Administered Prevnar (PCV20) IM Intramuscular 04/15/2023 Administered Tetanus Tdap-Adacel (over 7yrs) IM Intramuscular 11/05/2012 Administered Problems Problem Type SNOMED Code ICD Code Onset Dates Problem Status W/U Status Risk Notes Problem Essential hypertension (57610556) Essential hypertension (I10) Active confirmed Problem Obstructive sleep apnea (04020987) Obstructive sleep apnea (G47.33) Active confirmed Problem Sciatica (04603013) Lumbago with sciatica, left side (M54.42) Active confirmed Problem Chronic pain (50446578) Other chronic pain (G89.29) Active confirmed Problem Osteoarthritis of knee (393759683) Primary osteoarthritis of right knee (M17.11) Active confirmed Problem Osteoarthritis of knee (986007950) Primary osteoarthritis of left knee (M17.12) Active confirmed Problem Hypersomnia (91991245) Hypersomnia (G47.10) Active confirmed Problem Lumbar spondylosis (557505751) Lumbar spondylosis (M47.816) Active confirmed Problem Obesity (470928313) Non morbid obesity (E66.9) Active confirmed Problem Spinal stenosis of lumbar region (09420636) Spinal stenosis of lumbar region without neurogenic claudication (M48.061) Active confirmed Problem Allergic rhinitis (67118380) Allergic rhinitis, unspecified seasonality, unspecified trigger (J30.9) Active confirmed Problem Arthritis of left hip (4970431341267110 ) Arthritis of left hip (M16.12) Active confirmed Problem Lumbar spinal stenosis (34968980) Lumbar foraminal stenosis (M48.061) Active confirmed Problem Degeneration of intervertebral disc of lumbar region with discogenic back pain and lower extremity pain (M51.362) Active confirmed Vital Signs Heart Rate 84 /min 12/06/2024 Blood pressure diastolic 80 mm Hg 12/06/2024 Height 70.50 in 12/06/2024 Blood pressure systolic 128 mm Hg 12/06/2024 Weight 266.6 lbs 12/06/2024 BMI 37.71 kg/m2 12/06/2024 Encounters Encounter Location Date Provider Diagnosis [facility] [address] [place], [place] [phone] 01/21/2024 Zuhair [place] Essential hypertensi on I10 [facility] [address] [place] [phone] 2024 Zuhair [place] 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 Z02.4 [facility] [address] [place], [place] [phone] 07/21/2024 Zuhair [place] Essential hypertensi on I10 ; Allergic rhinitis, unspecified seasonality, unspecified trigger J30.9 ; Obstructive sleep apnea G47.33 ; Lumbago with sciatica, left side M54.42 and Non morbid obesity E66.9 [facility] [address] [facility] [address] [place], [place] [id number] 12/06/2024 Zuhair [place] Essential hypertensi on I10 ; Allergic rhinitis, unspecified seasonality, unspecified trigger J30.9 ; Obstructive sleep apnea G47.33 ; Non morbid obesity E66.9 and Prostate cancer screening Z12.5 [facility] [address] [facility] [address] [place], [place] [id number] 04/19/2024 R Jorge Matt Essential hypertensi on I10 [facility] [address] [place], [place] [phone] 05/03/2024 R Jorge Matt [facility] [address] [facility] [address] [place], [place] [id number] 05/11/2024 R Jorge Matt [facility] [address] [place], [place] [id number] 05/24/2024 Zuhair [place] Colon cancer screeni ng Z12.11 and Positive colorectal cancer screening using Cologuard test R19.5 [facility] [address] [place] [id number] 08/28/2024 Zuhair [place] Lumbago with sciatic a, left side M54.42 ; Degeneration of intervertebral disc of lumbar region with discogenic back pain and lower extremity pain M51.362 ; Lumbar spondylosis M47.816 ; Lumbar foraminal stenosis M48.061 and Spinal stenosis of lumbar region without neurogenic claudication M48.061 [facility] [address] [place], [place] [id number] 09/12/2024 Zuhair [place] [facility] [address] [facility] [address] [place], [place] [id number] 10/12/2024 Zuhair [place] Lumbar spondylosis M47.816 ; Lumbago with sciatica, left side M54.42 ; Lumbar foraminal stenosis M48.061 ; Degeneration of intervertebral disc of lumbar region with discogenic back pain and lower extremity pain M51.362 and Spinal stenosis of lumbar region without neurogenic claudication M48.061 [facility] [address] [place], [place] [id number] 12/07/2024 Zuhair [place] Assessments Encounter Date Diagnosis (ICD Code) Assessment Notes Treatment Notes Treatment Clinical Notes Section Notes 01/21/2024 Essential hypertension (ICD-10 - I10) 04/19/2024 Essential hypertension (ICD-10 - I10) 05/24/2024 Colon cancer screening (ICD-10 - Z12.11) 05/24/2024 Positive colorectal cancer screening using Cologuard test (ICD-10 - R19.5) 2024 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 [place] license (ICD-10 - Z02.4) 07/21/2024 Essential hypertension (ICD-10 - I10) 07/21/2024 Allergic rhinitis, unspecified seasonality, unspecified trigger (ICD-10 - J30.9) 08/28/2024 Lumbago with sciatica, left side (ICD-10 - M54.42) 08/28/2024 Degeneration of intervertebral disc of lumbar region with discogenic back pain and lower extremity pain (ICD-10 - M51.362) 10/12/2024 Lumbago with sciatica, left side (ICD-10 - M54.42) 10/12/2024 Lumbar spondylosis (ICD-10 - M47.816) 12/06/2024 Essential hypertension (ICD-10 - I10) 12/06/2024 Allergic rhinitis, unspecified seasonality, unspecified trigger (ICD-10 - J30.9) 12/06/2024 Obstructive sleep apnea (ICD-10 - G47.33) 10/12/2024 Lumbar foraminal stenosis (ICD-10 - M48.061) 08/28/2024 Lumbar spondylosis (ICD-10 - M47.816) 07/21/2024 Obstructive sleep apnea (ICD-10 - G47.33) 07/21/2024 Lumbago with sciatica, left side (ICD-10 - M54.42) 10/12/2024 Degeneration of intervertebral disc of lumbar region with discogenic back pain and lower extremity pain (ICD-10 - M51.362) 12/06/2024 Non morbid obesity (ICD-10 - E66.9) 08/28/2024 Lumbar foraminal stenosis (ICD-10 - M48.061) 12/06/2024 Prostate cancer screening (ICD-10 - Z12.5) 07/21/2024 Non morbid obesity (ICD-10 - E66.9) 08/28/2024 Spinal stenosis of lumbar region without neurogenic claudication (ICD-10 - M48.061) 10/12/2024 Spinal stenosis of lumbar region without neurogenic claudication (ICD-10 - M48.061) 07/21/2024 Other Patient will return to the office when fasting sometime in the next few months Plan Of Treatment Next Appt Details Provider Name:Zuhair [place], 01/22/2025 09:30:00 AM, [address], [address], [place], [phone], Provider Name:Zuhair [place], 2025 09:15:00 AM, [address], [address], [place], [id number], Insurance Providers Payer Name Payer Address Payer Phone Subscriber Number Group Number Insured Name Patient Relationship to Insured Coverage Start Date Coverage End Date [employer] [address] [place] [address] [id number] ARACELIS BERGMAN Self - patient is the insured MEDICARE PART B [address] [address] [place] [id number] ARACELIS BERGMAN Self - patient is the insured Medications Administered Medication Instructions Date of Administration Dosage Notes Dexamethasone 08/30/2017 1 mL Medical (General) History Medical History History ICD Code Vitamin B 12 deficiency Vitamin D deficiency LT Hip Arthritis chronic back pain Lumbar Disc Disease, MRI 2024 Bilateral Knee Osteoarthritis Sleep Apnea, Dx: 2022 Lumbar facet arthropathy Colon polyps Surgical History Surgery Date(Month/Year) RT Knee Replacement 02/19/2021 LT Knee Replacement 04/15/2021 colonoscopy 2024 Hospitalization History Reason Date(Month/Year)
--- OUTSIDE RECORDS SUMMARY | 2024-12-27 09:03 | XMS_ITS ---
Author Organization Unknown Results OrderDate OrderTestName ResultName ResultDate Value Units Range AbnormalFlag ResultStatus ObservationNotes TestCode ResultCode DateRecorded AccessionNumber DiagnosticSectionCode DiagnosticSectionName Sequence Interpretation Cust om 05/04/2024 00:00:00 Cologuard Cologuard 3067-44-11U74:00:00 Positive Reviewed Siena Vitale 05/04/2024 3:06:30 PM > order faElvira Bourgeois 05/24/2024 9:05:08 AM > , See phone encounter Cologuard Coding Cologuard 05/04/2024 00:00: 00:00:00Urinalysis - InhouseGluc 8184-69-05G49:00:00NegReCathryn Marmolejo 2024 10:42:34 AM > , Provider reviewed results while patient in office. Coding Urinalysis - Inhouse 2024 00:00: 00:00:00Urinalysis - InhouseBili 7212-51-44A05:00:00NegReCathryn Marmolejo 2024 10:42:34 AM > , Provider reviewed results while patient in office. Coding Urinalysis - Inhouse 2024 00:00: 00:00:00Urinalysis - InhouseKetone 4395-26-08K59:00:00NegRevieweCathryn Vaca 2024 10:42:34 AM > , Provider reviewed results while patient in office. Coding Urinalysis - Inhouse 2024 00:00: 00:00:00Urinalysis - InhouseSp. Gr. 2745-87-79D79:00:001.025ReCathryn Marmolejo 2024 10:42:34 AM > , Provider reviewed results while patient in office. Coding Urinalysis - Inhouse 2024 00:00: 00:00:00Urinalysis - InhouseBlood 0388-47-40M17:00:00Trace-IntactRevieweLioCathryn 2024 10:42:34 AM > , Provider reviewed results while patient in office. Coding Urinalysis - Inhouse 2024 00:00: 00:00:00Urinalysis - AwcbzpiuC1761-61-22F72:00:00 5.5[facility]we[facility]io[facility] 2024 10:42:34 AM > , Provider reviewed results while patient in office. Coding Urinalysis - Inhouse 2024 00:00: 00:00:00Urinalysis - InhouseProtein 4250-21-18H56:00:00NegReJaleelSonoma Developmental Center 2024 10:42:34 AM > , Provider reviewed results while patient in office. Coding Urinalysis - Inhouse 2024 00:00: 00:00:00Urinalysis - InhouseUrobili 3951-59-33J57:00:003.2RevieweLioSon[facility] 2024 10:42:34 AM > , Provider reviewed results while patient in office. Coding Urinalysis - Inhouse 2024 00:00: 00:00:00Urinalysis - InhouseNitrite 2336-96-14O85:00:00NegReJaleelSonoma Developmental Center 2024 10:42:34 AM > , Provider reviewed results while patient in office. Coding Urinalysis - Inhouse 2024 00:00: 00:00:00Urinalysis - InhouseLeuk 0239-39-93P33:00:00NegReJaleelSonoma Developmental Center 2024 10:42:34 AM > , Provider reviewed results while patient in office. Coding Urinalysis - Inhouse 2024 00:00:0001 00:00:00Urinalysis - InhouseColor/Clarity 6020-14-59E49:00:00yellow/clearReviewedKingCathryn 2024 10:42:34 AM > , Provider reviewed results while patient in office. Coding Urinalysis - Inhouse 2024 00:00: 00:00:00Pathology trdgxlcwmb5579-79-93T85:00:00 Negative, see colonoscopyReviewed Coding Pathology evaluation 08/11/2024 00:00:00012/06/2024 00:00:00P-Microalbumin/Creatinine, Random Urine SampleMicroalbumin, Urine, Rwvboc3730-64-57D55:00:000.5mg/dL- mg/dLReElvira Perea 12/07/2024 09:40:19 AM EDT > See phone encounter Coding P-Microalbumin/Creatinine, R andom Urine Sample Coding Microalbumin, Urine, Random 12/06/2024 00:00:00012/06/2024 00:00:00P-Microalbumin/Creatinine, Random Urine SampleCreatinine, Hpzjk4335-55-55L36:00:25951.3mg/dL- mg/dLReElvira Vasquez 12/07/2024 09:40:19 AM EDT > See phone encounter Coding P-Microalbumin/Creatinine, R andom Urine Sample Coding Creatinine, Urine 12/06/2024 00:00: 00:00:00P-Microalbumin/Creatinine, Random Urine SampleAlbumin/Creatinine Ratio, Hzqwn7937-74-82P57:00:003ug/mg0-30 - ug/mg Elvira Velasco 12/07/2024 09:40:19 AM EDT > See phone encounter Coding P-Microalbumin/Creatinine, R andom Urine Sample Coding Albumin/Creatinine Ratio, Ur ine 12/06/2024 00:00: 00:00:36F-WXHOTX6492-38UJGKYJ5367-81-15V47:00:002.03ng/mL<4.00 - ng/mLRevieweElvira Beckham 12/07/2024 09:40:19 AM EDT > See phone encounter Coding P-PSA Coding PSA 12/06/2024 00:00: 00:00:00P-Lipid PanelTriglycerides 6927-28-76F39:00:56863qz/dL<150 - mg/dLElvira Nunn 12/07/2024 09:40:19 AM EDT > See phone encounter Coding P-Lipid Panel Coding Triglycerides 12/06/2024 00:00: 00:00:00P-Lipid PanelNon-HDL Cholesterol 4631-93-73S70:00:23251hc/dL<130 - mg/dLElvira Nunn 12/07/2024 09:40:19 AM EDT > See phone encounter Coding P-Lipid Panel Coding Non-HDL Cholesterol 12/06/2024 00:00: 00:00:00P-Lipid PanelLDL/HDL Ratio 1632-38-70W68:00:004.6Ratio<3.3 - RatioElvira Nunn 12/07/2024 09:40:19 AM EDT > See phone encounter Coding P-Lipid Panel Coding LDL/HDL Ratio 12/06/2024 00:00: 00:00:00P-Lipid PanelLDL Cholesterol (Calculation) 2002-79-89P91:00:90356yg/dL<130 - mg/dLElvira Velasco 12/07/2024 09:40:19 AM EDT > See phone encounter Coding P-Lipid Panel Coding LDL Cholesterol (Calculation ) 12/06/2024 00:00: 00:00:00P-Lipid PanelHDL Cholesterol 0454-52-65V90:00:0026mg/dL>39 - mg/dLElvira Marsh 12/07/2024 09:40:19 AM EDT > See phone encounter Coding P-Lipid Panel Coding HDL Cholesterol 12/06/2024 00:00: 00:00:00P-Lipid PanelCholesterol 1349-30-31I27:00:06819tg/dL<200 - mg/dLElvira Nunn 12/07/2024 09:40:19 AM EDT > See phone encounter Coding P-Lipid Panel Coding Cholesterol 12/06/2024 00:00: 00:00:00P-Lipid PanelCholesterol / HDL Ratio 8060-70-00H69:00:007.67Bujpt3.00-4.99 - RatioElvira Nunn 12/07/2024 09:40:19 AM EDT > See phone encounter Coding P-Lipid Panel Coding Cholesterol / HDL Ratio 12/06/2024 00:00: 00:00:00P-Basic Metabolic Panel (BMP)eGFR by Ojvotaqapt2345-68-38A75:00:0077mL/min/1.73m2>59 - mL/min/1.43g1ThvmxaxlNhusruElvira Velasco 12/07/2024 09:40:19 AM EDT > See phone encounter Coding P-Basic Metabolic Panel (BMP ) 12/06/2024 00:00: 00:00:00P-Basic Metabolic Panel (BMP)Sodium 5423-38-76Q08:00:01192wbim/T096-953 - mmol/Elvira Marsh 12/07/2024 09:40:19 AM EDT > See phone encounter Coding P-Basic Metabolic Panel (BMP ) Coding Sodium 12/06/2024 00:00: 00:00:00P-Basic Metabolic Panel (BMP)Potassium 7845-95-72E75:00:004.6mmol/L3.5-5.3 - mmol/LRElvira James 12/07/2024 09:40:19 AM EDT > See phone encounter Coding P-Basic Metabolic Panel (BMP ) Coding Potassium 12/06/2024 00:00: 00:00:00P-Basic Metabolic Panel (BMP)Glucose 3696-14-85M57:00:0082mg/dL65-99 - mg/dLElvira Velasco 12/07/2024 09:40:19 AM EDT > See phone encounter Coding P-Basic Metabolic Panel (BMP ) Coding Glucose 12/06/2024 00:00:00012/06/2024 00:00:00P-Basic Metabolic Panel (BMP)Creatinine 1879-10-12M57:00:001.06mg/dL0.70-1.30 - mg/dLElvira Velasco 12/07/2024 09:40:19 AM EDT > See phone encounter Coding P-Basic Metabolic Panel (BMP ) Coding Creatinine 12/06/2024 00:00:00012/06/2024 00:00:00P-Basic Metabolic Panel (BMP)CO2 2615-39-62Y06:00:0022mmol/L20-32 - mmol/LRevElvira Thomas 12/07/2024 09:40:19 AM EDT > See phone encounter Coding P-Basic Metabolic Panel (BMP ) Coding CO2 12/06/2024 00:00: 00:00:00P-Basic Metabolic Panel (BMP)Chloride 6473-25-38X81:00:09780apco/L97-108 - mmol/LRevElvira Thomas 12/07/2024 09:40:19 AM EDT > See phone encounter Coding P-Basic Metabolic Panel (BMP ) Coding Chloride 12/06/2024 00:00: 00:00:00P-Basic Metabolic Panel (BMP)Calcium 7043-80-26C39:00:009.4mg/dL8.6-10.4 - mg/dLElviar Velasco 12/07/2024 09:40:19 AM EDT > See phone encounter Coding P-Basic Metabolic Panel (BMP ) Coding Calcium 12/06/2024 00:00:00012/06/2024 00:00:00P-Basic Metabolic Panel (BMP)BUN 0068-35-50G92:00:0024mg/dL8-23 - mg/dLElvira Nunn 12/07/2024 09:40:19 AM EDT > See phone encounter Coding P-Basic Metabolic Panel (BMP ) Coding BUN 12/06/2024 00:00:00
--- NOTE | 2024-12-27 09:05 | EXP.PAIN.OV ---
HPI Data of Consult Patient: new to practice Consult date: 12/27/24 Requesting Physician: Hemalatha Mann APRN Primary Care Provider: Turner Reynaga MD Reason for consult: Low back pain, bilateral hip pain, thigh pain History of present illness: Mr. Orlando is a 69 year old male who presents today as a new patient. He is a referral from Dr. Mcghee office. Today he rates his pain a 6 out of 10. Patient states he has been having ongoing low back and hip pain for longer than 3 to 4 years unrelated to any specific trauma or injury. He does describe this as a aching sensation that is worse with increased activity or certain positions. He does feel like when he is up walking and moving that his left hip is just going to give out causing him to fall. He states that overall his low back feels like it is always sore and does have burning and itching primarily into the right leg. Patient states the pain is interfering with his ability to perform activities of daily living such as cooking and cleaning. Patient has done conservative therapy including gnlh-thn-soewnln medications such as Tylenol, heat and ice and topicals. Patient does see a chiropractor on a regular basis and does help but is often very temporary. Patient did go and see Dr. Perez for evaluation and he was recommending injection therapy. He was told that there may be surgery in the future that would be beneficial however wanted to try conservative therapy first. Patient denies any prior surgery or injection history. Patient is interested in any help we may be able to provide. He denies any diabetes.His Lm has been reviewed and is appropriate. Pain at rest (0-10 scale): 6 Has patient had previous pain injection?: No Conservative treatment options previously tried: Home exercise plan (Longer than 12 weeks) and Chiropractor (Longer than 12 weeks) cc:: CC: Hemalatha Mann APRN [facility] Disclaimer: The information contained in this section may have been updated after the patient was seen, as this information can be updated by other users. Medical History (Updated 12/27/24 @ 09:45 by Hemalatha Mann APRN) Hypertension Surgical History History of bilateral knee replacement Family History Other No significant family history Social History (Updated 08/09/24 @ 06:47 by Geoffrey Martins CRNA) Smoking Status: Current every day smoker alcohol intake: never substance use type: denies use current occupational status: employed Travel in the last 8 weeks?: None caffeine: Yes Review of Systems Review of Systems Review of systems:: pertinent systems reviewed and negative unless documented below Review of systems (narrative): Review of Systems: General: No recent weight changes, no fever, no sleep disturbances Respiratory: No cough, no shortness of air, no recurring pulmonary infections Cardiovascular/peripheral vascular: No chest pain, no palpitations, no edema, no shortness of breath Gastrointestinal: No new onset incontinence, normal bowel movements reported Genitourinary: No new onset incontinence Musculoskeletal: Low back pain, bilateral hip pain, right thigh pain Psychiatric: [Normal mood/affect] Neurological: [Denies weakness in extremities], [denies balance issues] Meds Home Medications and Allergies Home Medications ?Medication ?Instructions ?Recorded ?Confirmed ?Type sodium sul 1.479 gram-potas ch See Rx Instructions PO PER PKG DIR 07/26/24 Rx 0.188 gram-magnes sul 0.225 gram colonscopy #24 tabs tablet (Sutab) lisinopril 10 mg tablet 10 mg PO DAILY 08/07/24 08/09/24 History loratadine 10 mg tablet (Claritin) 10 mg PO DAILY 08/09/24 08/09/24 History montelukast 10 mg tablet 10 mg PO DAILY 08/09/24 08/09/24 History (Singulair) New Prescriptions to Start Prescriptions: Allergies Allergy/AdvReac Type Severity Reaction Status Date / Time No Known Allergies Allergy Verified 08/09/24 06:19 Objective Narrative: Physical Exam: General: Alert and oriented x3, no acute distress, pleasant and cooperative Lungs: Respirations even and unlabored, symmetrical chest expansion Eyes: PERRL Musculoskeletal: Flexion and extension of lumbar [spine] somewhat guarded secondary to pain, [antalgic gait noted] positive leg raise Neurological: Speech clear, no gross sensory deficit Additional findings Additional findings: FINDINGS: Bones/joints: The lumbar vertebral bodies are normal in height. The lowest full sized lumbar vertebral body is labeled as L5 for the purposes of this dictation. Mild retrolisthesis of L5 on S1. Spinal cord: The distal end of the conus medullaris ends at L1-L2, normal in position. Multilevel findings: Degenerative changes are noted diffusely within the lumbar spine, with a decrease in the T2 signal intensity of the discs, as well as disc bulge/osteophyte complexes. Additional degenerative changes are visualized involving the lower thoracic spine. A decrease in disc height is visualized at L1-L2 and L5-S1. L1-L2: Bilateral facet arthropathy. A broad-based disc bulge is visualized causing minimal narrowing of the thecal sac. A left-sided disc protrusion is identified, with narrowing of the left lateral recess and moderate left neural foraminal narrowing. There is no significant narrowing of the right neural foramen. L2-L3: Bilateral facet arthropathy with hypertrophy of the ligamentum flavum. A broad-based disc bulge is visualized with prominence of posterior epidural fat and severe narrowing of the thecal sac. The AP dimension of thecal sac measures 0.7 cm. There is narrowing of both lateral recesses. Mild bilateral foraminal narrowing is identified. L3-L4: Bilateral facet arthropathy. A broad-based disc bulge is visualized with prominence of posterior epidural fat and moderate to severe narrowing of the thecal sac. There is narrowing of the lateral recesses, right side greater than left. Moderate bilateral neural foraminal narrowing is identified. L4-L5: Bilateral facet arthropathy. A broad-based disc bulge/osteophyte complex is identified, with minimal narrowing of the thecal sac. There is narrowing of both lateral recesses. Severe bilateral neural foraminal narrowing is visualized, with encroachment on the bilateral exiting L4 nerve roots. L5-S1: Bilateral facet arthropathy. Mild Modic endplate changes are visualized. Disc bulging with central protrusion are identified causing narrowing the anterior epidural fat. There is no significant spinal canal stenosis. There is narrowing of the left lateral recess. Severe bilateral neural foraminal narrowing is identified, with compression of the exiting right L5 nerve root. There is encroachment on the exiting left L5 nerve root. Soft tissues: Mild edema is visualized within the subcutaneous tissues posteriorly. Kidneys and ureters: Exophytic to the midpole of the right kidney, there is a 5.8 cm T2 hyperintense cyst or cystic lesion partially visualized. Nonspecific perinephric stranding is identified bilaterally. IMPRESSION: 1. Mild retrolisthesis of L5 on S1. 2. Degenerative changes are noted diffusely within the lumbar spine, as described above. Additional degenerative changes are visualized involving the lower thoracic spine. 3. Severe narrowing of the thecal sac at L2-L3, with moderate to severe thecal sac narrowing at L3-L4. There is minimal narrowing of the thecal sac at L1-L2 and L4-L5. A central protrusion at L5-S1 causes narrowing of the anterior epidural fat. 4. Neural foraminal narrowing at all lumbar levels. There is compression of the exiting right L5 nerve root. Encroachment is also noted on the bilateral exiting L4 and left L5 nerve roots. A left-sided disc protrusion is identified at L1-L2, with narrowing of the left lateral recess and moderate left neural foraminal narrowing. 5. Exophytic to the midpole of the right kidney, there is a 5.8 cm cyst or cystic lesion partially visualized. Follow-up ultrasonography is recommended, as clinically indicated. 6. Additional findings described above. Assessment and Plan *Assessment and plan (1) Degenerative disc disease: Status: Acute Category: Medical (2) Bilateral hip pain: Status: Acute Category: Medical Code(s): M25.551 - Pain in right hip; M25.552 - Pain in left hip (3) Lumbar radiculopathy: Status: Acute Category: Medical Code(s): M54.16 - Radiculopathy, lumbar region (4) Spinal stenosis: Status: Acute Category: Medical Code(s): M48.00 - Spinal stenosis, site unspecified Plan Patient is experiencing worsening pain in his low back with numbness and burning into his lower extremities. Patient did have limited range of motion of his lumbar spine with a positive leg raise. I did discuss with patient that I do believe they would benefit from a lumbar epidural steroid injection. Risk and benefits were discussed with patient and the patient would like to proceed forward with this plan of care. Patient is not on any blood thinners. Patient has tried and failed conservative therapy including oral medications, heat and ice, topicals, chiropractor therapy and continued at home stretching exercise for longer than 12 weeks that was physician guided. Patient has had chronic back pain for longer than 6 months. Patient has not had any epidurals in the past to compare to. We will schedule the patient for an LESI L4-L5 under fluoroscopy. I will order the patient a compounded cream Patient has been instructed to contact the clinic with any concerns before the next appointment. Dr. Montez has reviewed this note and agrees with this plan of care. This note was dictated using voice recognition software and make contain errors or omissions. All injections are used with Lidocaine, Bupivacaine and dexamethasone. Occasionally urine drug screen is needed to verify patient's compliance with our office pain contract. This is ordered based off specific treatments related to chronic pain with the potential to abuse certain medications.
[2024-12-27 09:34] VITALS: BP 140/68; PULSE 75; RESP 18; O2SAT 95; BMI 36.2
== END 2024-12-27 23:59 | disposition home or self-care (01) ==
LOC: SC.PAIN 08:59
PROVIDERS: PCP Family Medicine; Visit Provider Nurse Practitioner Family
DX: M48.061 Spinal stenosis, lumbar region without neurogenic claudication (principal); M54.16 Radiculopathy, lumbar region; M25.551 Pain in right hip; M25.552 Pain in left hip
CPT/HCPCS: 99202; G0463

== ENCOUNTER 2025-01-26 07:24 | Outpatient (CLI) | payer BC, SELFPAY ==
--- OUTSIDE RECORDS SUMMARY | 2024-07-21 10:45 | XMS_ITS ---
Author Organization [facility] Address [address] [place] [id number] Care Team Providers Care Groundskeeper Name Role Phone Zuhair Reynaga Primary Care Provider ZUHAIR REYNAGA Unavailable Unavailable Allergies No Known Allergies Results Component Value Reference Range Notes X ray : Spine, lumbosacral Reviewed date:08/28/2024 03:44:45 PM Interpretation: Performing Lab: Notes/Report: REASON FOR VISIT 6 months Medications Medication SIG (Take, Route, Frequency, Duration) Notes Start Date End Date Status Sildenafil Citrate 50 MG 1 or 2 tab(s) o rally once a day as needed 07/09/2022 Active CPAP machine and supplies - as directed AutoPAP 10/30 as directed 03/03/2023 Active Loratadine 10 MG 1 tablet Orally Once a day; Duration: 90 days 09/27/2023 Active Montelukast Sodium 10 MG 1 tablet Orally Once a day; Duration: 90 days 09/27/2023 Active Irbesartan 150 MG 1 tablet Orally Once a day; Duration: 90 days 08/25/2023 Active Problems Problem Type SNOMED Code ICD Code Onset Dates Problem Status W/U Status Risk Notes Problem Allergic rhinitis (21311324) Allergic rhinitis, unspecified seasonality, unspecified trigger (J30.9) Active confirmed Problem Sciatica (50711345) Lumbago with sciatica, left side (M54.42) Active confirmed Problem Chronic pain (27368157) Other chronic pain (G89.29) Active confirmed Vital Signs Blood pressure systolic 130 mm Hg 07/22/19 25 Blood pressure diastolic 76 mm Hg 03/07/2 025 Heart Rate 87 /min 07/21/2024 Height 70.50 in 07/21/2024 Weight 270.4 lbs 07/21/2024 BMI 38.25 kg/m2 07/21/2024 Encounters Encounter Location Date Provider Diagnosis [facility] [address] [facility] [address] [place] [id number] 07/21/2024 Zuhair Reynaga Essential hypertensi on I10 ; Allergic rhinitis, unspecified seasonality, unspecified trigger J30.9 ; Obstructive sleep apnea G47.33 ; Lumbago with sciatica, left side M54.42 and Non morbid obesity E66.9 Assessments Encounter Date Diagnosis (ICD Code) Assessment Notes Treatment Notes Treatment Clinical Notes Section Notes 07/21/2024 Essential hypertension (ICD-10 - I10) 07/21/2024 Allergic rhinitis, unspecified seasonality, unspecified trigger (ICD-10 - J30.9) 07/21/2024 Obstructive sleep apnea (ICD-10 - G47.33) 07/21/2024 Lumbago with sciatica, left side (ICD-10 - M54.42) 07/21/2024 Non morbid obesity (ICD-10 - E66.9) 07/21/2024 Other Patient will return to the office when fasting sometime in the next few months Plan Of Treatment Medication Medication Name Sig Start Date Stop Date Notes CPAP machine and supplies - as directed AutoPAP 10/30 as directed 03/03/2023 Loratadine 10 MG 1 tablet Orally Once a day; Duration: 90 days 09/27/2023 Montelukast Sodium 10 MG 1 tablet Orally Once a day; Duration: 90 days 09/27/2023 Irbesartan 150 MG 1 tablet Orally Once a day; Duration: 90 days 08/25/2023 Treatment Notes Assessment Notes Other Patient will return to the office when fasting sometime in the next few months Next Appt Details Follow Up: 6 Months, Reason: Provider Name:Zuhair guthrie, 2025 09:15:00 AM, [address] [facility], [address], [place], [id number], Provider Name:Zuhair guthrie, 07/23/2025 09:15:00 AM, [address] [facility] [address] [facility], [address], [place], [id number], Progress Notes * ARACELIS BERGMAN ADOB:1955 (69 yo M)Acc No.[id number]:07/21/2024 Progress Notes Patient: ARACELIS TENORIO Account Number:[id number] Provider: Zulema Reynaga M.D. :1955 A ge:69 Y S ex:Male Date:07/21/2024 Address:[address] [place] [address], [id number] Subjective: * Chief Complaints: * 1 . 6 months. * HPI: C ardiology: 69 year old male presents with c/o Blood Pressure Elevated P t here for 6 mo f/u on hypertension, states he is doing well and does not have any concerns. * ROS: D ERMATOLOGY: no R forrest. n o H abhishek. G ASTROENTEROLOGY: no N ausea. n o V omiting. M USCULOSKELETAL: Back pain yes, o ff and on for years, radiates to the left hip thigh area at times. U ROLOGY: no D ifficulty urinating. n o B lood in urine. * Medical History: V itamin B 12 deficiency, Vitamin D deficiency, LT Hip Arthritis, Chronic back pain, Lumbar Disc Disease, Bilateral Knee Osteoarthritis, Sleep Apnea, Dx: 2022. * Surgical History: R T Knee Replacement 02/19/2021, LT Knee Replacement 04/15/2021. * Hospitalization/Major Diagno stic Procedure: D enies Past Hospitalization. * Family History: F ather: alive. M other: . P aternal Grand Father: . P aternal Grand Mother: . M aternal Grand Father: . M aternal Grand Mother: .?2 brother(s) , 1 sister(s) - healthy. 2 son(s) - healthy. . * Social History: C URRENT TOBACCO USE S moking Status: Patient does NOT smoke. C affeine: yes, frequency:daily. Exercise: no. Home smoke detector use: yes. Marital Status: . 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 Past smoking status: yes, PPD: , years: ,determination:1pack, 29yrs. Recreational drug use: no. Alcohol: no. Sexually active: yes. Travel ouside [place]: no. * Medications: T aking Sildenafil Citrate 50 MG Tablet 1 or 2 tab(s) orally once a day as needed , Taking CPAP machine and supplies - - as directed AutoPAP 10/30 as directed , Taking Irbesartan 150 MG Tablet 1 tablet Orally Once a day , Taking Montelukast Sodium 10 MG Tablet 1 tablet Orally Once a day , Taking Loratadine 10 MG Tablet 1 tablet Orally Once a day , Medication List reviewed and reconciled with the patient * Allergies: N .K.D.A. Objective: * Vitals: W t:270.4, Temp:98.0, BP:130/76, HR:87, Nurse:jacob, Ht: 70.50, BMI:38.25. * Examination: G eneral Examination: General Appearance: N AD. H eart: R SR. L ungs:?clear to auscultation. E xtremities: n o leg edema. Assessment: * Assessment: 1. E ssential hypertension - I10 (Primary) 2 . A llergic rhinitis, unspecified seasonality, unspecified trigger - J30.9 3 . O bstructive sleep apnea - G47.33 4 . L umbago with sciatica, left side - M54.42 5 . N on morbid obesity - E66.9 Plan: * Treatment: 2. A llergic rhinitis, unspecified seasonality, unspecified trigger Refill Montelukast Sodium Tablet, 10 MG, 1 tablet, Orally, Once a day, 90 days, 90, Refills 1; R efill Loratadine Tablet, 10 MG, 1 tablet, Orally, Once a day, 90 days, 90, Refills 1. 3. O bstructive sleep apnea Continue CPAP machine and supplies -, -, as directed, AutoPAP 10/30, as directed. 4. L umbago with sciatica, left side I maging: X ray : Spine, lumbosacral (Performed Date - 08/24/2024) 5.?Others? Notes: Patient will return to the office when fasting sometime in the next few months?? * Procedure Codes: 3 075F SYST BP GE 130 - 139MM HG, 3078F DIAST BP < 80 MM HG * Follow Up: 6 Months * Images: Billing Information: * Visit Code: 51208 Office Visit, Est Pt., Level 4. * Procedure Codes: 3075F SYST BP GE 130 - 139MM HG. 3078F DIAST BP < 80 MM HG. * Electronic signature of Neelam Reynaga MD on 01/26/2025 at 07:26 AM EDT Sign off status: Pending * Provider: Zulema Reynaga M.D. Date: 0 07/21/2024 Generated for Thea thurman/Brittani/Armandsmitting on: 0 01/26/2025 07:26 AM EDT History and Physical Notes * HPI (History of Present Illness) Category Sub-Category Detail Notes Category Not es Cardiology Blood Pressure Elevated Pt here for 6 mo f/u on hypertension, states he is doing well and does not have any concerns Examination Category Sub-Category Detail Notes Category Not es General Examination Heart: RSR Lungs: clear to auscultatio n Extremities: no leg edema General Appearance: NAD
--- OUTSIDE RECORDS SUMMARY | 2024-12-06 05:45 | XMS_ITS ---
Author Organization [facility] Address [address] [place] [id number] Care Team Providers Care Automotive Internet Sales Manager Name Role Phone Zuhair Reynaga Primary Care Provider [phone] ZUHAIR REYNAGA Unavailable Unavailable Allergies No Known Allergies Results Component Value Reference Range Notes P-Basic Metabolic Panel (BMP ) Reviewed date:12/07/2024 09:40:48 AM Interpretation:bun 24 Performing Lab: Notes/Report: Test performed by [facility] [address] [place] [address] , [address], [place] [address] Sebastian Motta MD, Forcer Maker CLIA: [id number] Sodium 138 135-145 mmol/L Potassium 4.6 3.5-5.3 mmol/L Chloride 105 97-108 mmol/L CO2 22 20-32 mmol/L Glucose 82 65-99 mg/dL BUN 24 8-23 mg/dL Creatinine 1.06 0.70-1.30 mg/dL Calcium 9.4 8.6-10.4 mg/dL eGFR by Creatinine 77 >59 mL/min/1.73m2 P-Lipid Panel Reviewed date:12/07/2024 09:40:48 AM Interpretation:chol 202, trigs 280, hdl 26, chol/hdl 7.77, non-hdl 176, ldl/hdl 4.6 Performing Lab: Notes/Report: Test performed by [facility] [address] [place], [place] [address] [place] , [address], [place] [address] Sebastian Motta MD, Forcer Maker CLIA: [id number] Cholesterol 202 <200 mg/dL Triglycerides 280 <150 [...] Interpretation:Normal Performing Lab: Notes/Report: Test performed by [facility], [address], [place] [address] Sebastian Motta MD, Forcer Maker CLIA: [id number] PSA 2.03 <4.00 ng/mL Please note this is an ultrasensitive PSA assay with a lower limit of detection of 0.014 ng/mL. This test is performed by the Brittany ECLIA methodology. Values obtained with different assay methods or kits cannot be directly compared. P-Microalbumin/Creatinine, R andom Urine Sample Reviewed date:12/07/2024 09:40:48 AM Interpretation:Normal Performing Lab: Notes/Report: Test performed by [facility] [address] [place] [address] , [address], [place] [address] Sebastian Motta MD, Forcer Maker CLIA: [id number] Albumin/Creatinine Ratio, Urine 3 0-30 ug/mg Microalbumin, [...] Once a day 08/25/2023 Active Vital Signs Blood pressure systolic 128 mm Hg 12/07/19 25 Blood pressure diastolic 80 mm Hg 025 Heart Rate 84 /min 12/06/2024 Height 70.50 in 12/06/2024 Weight 266.6 lbs 12/06/2024 BMI 37.71 kg/m2 12/06/2024 Encounters Encounter Location Date Provider Diagnosis [facility] [address] [place], [place] [id number] 12/06/2024 Zuhair Witt Essential hypertensi on I10 ; Allergic rhinitis, [...] Provider Name:Zuhair guthrie, 2025 09:15:00 AM, [address] [facility] [address] [facility], [facility] [address], [place], [place], [id number], Provider Name:Zuhair guthrie, 07/23/2025 09:15:00 AM, [address] [facility] [address] [facility], [facility] [address], [place], [place], [id number], Progress Notes * ARACELIS BERGMAN ADOB:1955 (69 yo M)Acc No.[id number]:12/06/2024 Progress Notes Patient: ARACELIS TENORIO Account Number:[id number] Provider: Zulema Reynaga M.D. :1955 A ge:69 Y S ex:Male Date:12/06/2024 Address:[address] [place], [place] [address] [id number] Subjective: * Chief Complaints: * 1 . [...] use: yes. Marital Status: . Occupation: franco/ team otr truck driver. Past smoking status: yes, PPD: [...] * Images: Billing Information: * Visit Code: 59566 Office Visit, Est Pt., Level 4. * Procedure Codes: 1036F TOBACCO NON-USER. 3074F SYST BP LT 130 MM HG. 3079F DIAST BP 80-89 MM HG. * Electronic signature of Neelam Reynaga MD on 01/26/2025 at 07:26 AM EDT Sign off status: Pending * Provider: Zulema Reynaga M.D. Date: 0 12/06/2024 Generated for Thea thurman/Brittani/eTcirosmitting on: 0 01/26/2025 07:26 AM EDT History [...]
--- OUTSIDE RECORDS SUMMARY | 2025-01-22 05:30 | XMS_ITS ---
Author Organization [facility] Address [address] [place] [id number] Care Team Providers Care Piano Professor Name Role Phone Zuhair Reynaga Primary Care Provider ZUHAIR REYNAGA Unavailable Unavailable Allergies No Known Allergies Results Component Value Reference Range Notes P-Comprehensive Metabolic [facility] (CMP) Reviewed date:01/23/2025 09:50:12 AM Interpretation:Normal Performing Lab: Notes/Report: Test performed by [facility] [address] [place] [address] , [address], [place] [address] Sebastian Motta MD, Validation Leader CLIA: [id number] Sodium 136 135-145 mmol/L Potassium 4.5 3.5-5.3 mmol/L Chloride 103 97-108 mmol/L CO2 23 20-32 mmol/L Glucose 101 65-99 mg/dL BUN 19 8-23 mg/dL Creatinine 1.06 0.70-1.30 mg/dL Calcium 9.7 8.6-10.4 mg/dL eGFR by Creatinine 77 >59 mL/min/1.73m2 Protein 7.2 6.0-8.3 g/dL Albumin 4.7 3.5-5.3 g/dL Alkaline Phosphatase 110 40-129 IU/L ALT (SGPT) 48 <5-55 IU/L AST (SGOT) 20 <5-46 IU/L Bilirubin, Total 0.8 <0.2-1.2 mg/dL A/G Ratio 1.9 1.1-2.5 P-Lipid Panel Reviewed date:01/23/2025 09:50:12 AM Interpretation:Chol 215, Trigs 202, HDL 31, Chol 6.94, Non-HDL 184, LDL 144, LDL/HDL 4.6 Performing Lab: Notes/Report: Test performed by [facility], [address], [place] [address] Sebastian Motta MD, Validation Leader CLIA: [id number] Cholesterol 215 <200 mg/dL Triglycerides 202 <150 mg/dL HDL Cholesterol 31 >39 mg/dL Cholesterol / HDL Ratio 6.94 0.00-4.99 Ratio Non-HDL Cholesterol 184 <130 mg/dL LDL Cholesterol (Calculation) 144 <130 mg/dL LDL Cholesterol Levels* Less than [...] Results: 120 Units: mg/dL % Change: -14% Test Date: 01/22/2025 LDL Results: 144 Units: mg/dL % Change: +20% REASON FOR VISIT 6 month check with fasting labs Medications Medication SIG (Take, Route, Frequency, Duration) Notes Start Date End Date Status Loratadine 10 MG 1 tablet Orally Once a day; Duration: 90 days 09/27/2023 Active Irbesartan 150 MG 1 tablet Orally Once a day; Duration: 90 days Active Montelukast Sodium 10 MG 1 tablet Orally Once a day; Duration: 90 days 09/27/2023 Active CPAP machine and supplies - as directed AutoPAP 10/30 as directed 03/03/2023 Active CPAP Supplies - as directed as directed 12/06/2024 Active Sildenafil Citrate 50 MG 1 or 2 tab(s) o rally once a day as needed 07/09/2022 Active Immunizations Vaccine Route Administration Date Status Comme nts Fluzone High Dose (65yr and older) IM Intramuscular 01/22/2025 Administered Problems Problem Type SNOMED Code ICD Code Onset Dates Problem Status W/U Status Risk Notes Problem Mixed hyperlipidemia (324465002) Mixed hyperlipidemia (E78.2) Active confirmed Problem Hypertriglyceridemia (683463964) Hypertriglyceridemia (E78.1) Active confirmed Vital Signs Blood pressure systolic 130 mm Hg 01/23/20 25 Blood pressure diastolic 80 mm Hg 025 Heart Rate 84 /min 01/22/2025 Height 70.50 in 01/22/2025 Weight 267.0 lbs 01/22/2025 BMI 37.76 kg/m2 01/22/2025 Encounters Encounter Location Date Provider Diagnosis [facility] [address] [place], [place] [id number] 01/22/2025 Zuhair [place] Essential hypertensi on I10 ; Allergic rhinitis, unspecified seasonality, unspecified trigger J30.9 ; Obstructive sleep apnea G47.33 ; Personal history of nicotine dependence Z87.891 ; Screening for lung cancer Z12.2 ; Mixed hyperlipidemia E78.2 ; Hypertriglyceridemia E78.1 and Encounter for immunization Z23 Assessments Encounter Date Diagnosis (ICD Code) Assessment Notes Treatment Notes Treatment Clinical Notes Section Notes 01/22/2025 Essential hypertensi on (ICD-10 - I10) 01/22/2025 Allergic rhinitis, unspecified seasonality, unspecified trigger (ICD-10 - J30.9) 01/22/2025 Obstructive sleep ap laura (ICD-10 - G47.33) 01/22/2025 Personal history of nicotine dependence (ICD-10 - Z87.891) 01/22/2025 Screening for lung cancer (ICD-10 - Z12.2) 01/22/2025 Mixed hyperlipidemia (ICD-10 - E78.2) 01/22/2025 Hypertriglyceridemia (ICD-10 - E78.1) 01/22/2025 Encounter for immunization (ICD-10 - Z23) Plan Of Treatment Medication Medication Name Sig Start Date Stop Date Notes Loratadine 10 MG 1 tablet Orally Once a day; Duration: 90 days 09/27/2023 Montelukast Sodium 10 MG 1 tablet Orally Once a day; Duration: 90 days 09/27/2023 Pending Test Test Name Order Date CT Scan : Chest, low dose 01/22/2025 Next Appt Details Follow Up: 6 Months, Reason: Provider Name:Zuhair guthrie, 2025 09:15:00 AM, [address] [facility], [address], [place], [place], [id number], Provider Name:Zuhair guthrie, 07/23/2025 09:15:00 AM, [address] [facility], [facility] [address], [place], [place], [id number], Progress Notes * ARACELIS BERGMAN ADOB:1955 (69 yo M)Acc No.[id number]:01/22/2025 Progress Notes Patient: ARACELIS TENORIO Account Number:[id number] Provider: Zuelma Reynaga M.D. :1955 A ge:69 Y S ex:Male Date:01/22/2025 Address:[address] [place] [address], [place] [id number] Subjective: * Chief Complaints: * 1 . 6 month check with fasting labs. * HPI: C ardiology: 69 year old male presents with c/o Blood Pressure Elevated P t here for 6 mo checkup on hypertension. Pt states he is doing well and does not have any concerns at this time. c/o Hyperlipidemia P t is fasting today. * ROS: D ERMATOLOGY: no R forrest. n o H abhishek. G ASTROENTEROLOGY: no N ausea. n o V omiting. U ROLOGY: no D ifficulty urinating. n [...] use: yes. Marital Status: . Occupation: [employer] flatbed truck driver. Past smoking status: yes, PPD: , years: ,determination:1pack, 29yrs. Recreational drug use: no. Alcohol: no. Sexually active: yes. Travel ouside [place]: no. * Medications: T aking Sildenafil Citrate 50 MG Tablet 1 or 2 tab(s) orally once a day as needed , Taking CPAP machine and supplies - - as directed AutoPAP 10/30 as directed , Taking CPAP Supplies - - as directed as directed , Taking Montelukast Sodium 10 MG Tablet 1 tablet Orally Once a day , Taking Loratadine 10 MG Tablet 1 tablet Orally Once a day , Taking Irbesartan 150 MG Tablet 1 tablet Orally Once a day , Medication List reviewed and reconciled with the patient * Allergies: N .K.D.A. Objective: * Vitals: W t: 267.0, Temp: 98.4, BP: 130/80, HR: 84, Nurse: HELENA, Ht: 70.50, BMI:37.76. * Examination: G eneral Examination: General Appearance: N AD. H eart: R SR. L ungs:?clear to auscultation. E xtremities: n o leg edema. Assessment: * Assessment: 1. E ssential hypertension - I10 (Primary) 2 . A llergic rhinitis, unspecified seasonality, unspecified trigger - J30.9 3 . O bstructive sleep apnea - G47.33 4 . P ersonal history of nicotine dependence - Z87.891 5 . Screening for lung cancer - Z12.2 6 . M ixed hyperlipidemia - E78.2 ? 7 . H ypertriglyceridemia - E78.1 8 . E ncounter for immunization - Z23 Plan: * Treatment: 2. P ersonal history of nicotine dependence I maging: CT Scan : Chest, low dose 3.?Screening for lung cancer?Imaging: CT Scan : Chest, low dose* Patsy Marcum 01/22/2025 10:06 :52 AM EDT > no auth required; CPT code 29948; faxed to [facility] Scheduling 4.?Mixed hyperlipidemia?LAB: P-Comprehensive Metabolic Panel (CMP) (Collection Date & Time - 01/22/2025 08:57 AM)?Normal* Value Reference Range A /G Ratio 1.9 1.1-2.5 - * A lbumin 4.7 3.5-5.3 - g/dL * A lkaline Phosphatase 110 40-129 - IU/L * A LT (SGPT) 48 <5-55 - IU/L * A ST (SGOT) 20 <5-46 - IU/L * B ilirubin, Total 0.8 <0.2-1.2 - mg/dL * B UN 19 8-23 - mg/dL * C alcium 9.7 8.6-10.4 - mg/dL * C hloride 103 97-108 - mmol/L * C O2 23 20-32 - mmol/L * C reatinine 1.06 0.70-1.30 - mg/dL * G lucose 101 H 65-99 - mg/dL * P otassium 4.5 3.5-5.3 - mmol/L * S odium 136 135-145 - mmol/L * P rotein 7.2 6.0-8.3 - g/dL * e GFR by Creatinine 77 >59 - mL/min/1.73m2 * Karley Cornejo 01/23/2025 09:5 0:05 AM EDT > See phone encounter ?LAB: P-Lipid Panel (Collection Date & Time - 01/22/2025 08:57 AM)?Chol 215, Trigs 202, HDL 31, Chol 6.94, Non-HDL 184, LDL 144, LDL/HDL 4.6* Value Reference Range C holesterol / HDL Ratio 6.94 H 0.00-4.99 - Ratio * C holesterol 215 H <200 - mg/dL * H DL Cholesterol 31 L >39 - mg/dL * L DL Cholesterol (Calculation) 144 H <130 - mg/d L * L DL/HDL Ratio 4.6 H <3.3 - Ratio * N on-HDL Cholesterol 184 H <130 - mg/dL * T riglycerides 202 H <150 - mg/dL * Karley Cornejo 01/23/2025 09:5 0:05 AM EDT > See phone encounter 5.?Hypertriglyceridemia?LAB: P-Comprehensive Metabolic Panel (CMP) (Collection Date & Time - 01/22/2025 08:57 AM)?Normal* Value Reference Range A /G Ratio 1.9 1.1-2.5 - * A lbumin 4.7 3.5-5.3 - g/dL * A lkaline Phosphatase 110 40-129 - IU/L * A LT (SGPT) 48 <5-55 - IU/L * A ST (SGOT) 20 <5-46 - IU/L * B ilirubin, Total 0.8 <0.2-1.2 - mg/dL * B UN 19 8-23 - mg/dL * C alcium 9.7 8.6-10.4 - mg/dL * C hloride 103 97-108 - mmol/L * C O2 23 20-32 - mmol/L * C reatinine 1.06 0.70-1.30 - mg/dL * G lucose 101 H 65-99 - mg/dL * P otassium 4.5 3.5-5.3 - mmol/L * S odium 136 135-145 - mmol/L * P rotein 7.2 6.0-8.3 - g/dL * e GFR by Creatinine 77 >59 - mL/min/1.73m2 * Karley Cornejo 01/23/2025 09:5 0:05 AM EDT > See phone encounter ?LAB: P-Lipid Panel (Collection Date & Time - 01/22/2025 08:57 AM)?Chol 215, Trigs 202, HDL 31, Chol 6.94, Non-HDL 184, LDL 144, LDL/HDL 4.6* Value Reference Range C holesterol / HDL Ratio 6.94 H 0.00-4.99 - Ratio * C holesterol 215 H <200 - mg/dL * H DL Cholesterol 31 L >39 - mg/dL * L DL Cholesterol (Calculation) 144 H <130 - mg/d L * L DL/HDL Ratio 4.6 H <3.3 - Ratio * N on-HDL Cholesterol 184 H <130 - mg/dL * T riglycerides 202 H <150 - mg/dL * Karley Cornejo 01/23/2025 09:5 0:05 AM EDT > See phone encounter * Immunizations: Fluzone High Dose (65yr and older) : 0.5 mL (Route: Intramuscular) given by Cathryn Blevins on Right Deltoid (Allergic rhinitis, unspecified seasonality, unspecified trigger) * Follow Up: 6 Months * Images: Billing Information: * Visit Code: 75097 Office Visit, Est Pt., Level 4. * Procedure Codes: * Electronic signature of Neelam Reynaga MD on 01/26/2025 at 07:26 AM EDT Sign off status: Pending * Provider: Zulema Reynaga M.D. Date: 0 01/22/2025 Generated for Thea thurman/Brittani/Erichitting on: 0 01/26/2025 07:26 AM EDT History and Physical Notes * HPI (History of Present Illness) Category Sub-Category Detail Notes Category Not es Cardiology Blood Pressure Elevated Pt here for 6 mo checkup on hypertension. Pt states he is doing well and does not have any concerns at this time Hyperlipidemia Pt is fasting today Examination Category Sub-Category Detail Notes Category Not es General Examination Heart: RSR Lungs: clear to auscultatio n Extremities: no leg edema General Appearance: NAD
--- NOTE | 2025-01-26 07:25 | CT_ITS ---
FINAL REPORT TECHNIQUE: Thin section axial images were obtained through the lungs using a low-dose technique per lung cancer screening protocol. Reconstruction images were obtained using the axial data. Exam was performed using dose reduction technique. CLINICAL HISTORY: cancer screening 1 ppd / 50 years current smoker FINDINGS: CTDL vol: 2.90 DLP: 113.85 Lungs: There are subtle ground glass nodular opacities in the right upper lobe on series 4, images 31 through 36, favor infectious or inflammatory. There is evidence of granulomatous disease. There is a 5 mm nodule at the left apex on image 11. The lungs are otherwise clear. Lymph nodes: No thoracic lymphadenopathy. Mediastinum: Heart size is normal. There is prominent coronary artery calcification. No Pleura/pericardium: No pleural or pericardial effusion. Other: No acute abnormality in the upper abdomen. IMPRESSION: Ground glass nodular opacities in the right upper lobe, favor infectious or inflammatory. Nodule at the left apex measures 5 mm. Modifier S: Prominent coronary artery calcification Lung RADS: 0S Recommendation: Chest CT in 3 months. Reviewed, Interpreted and Dictated by Chichi Lynch MD Transcribed by Thania Cole Authenticated and [facility]
--- OUTSIDE RECORDS SUMMARY | 2025-01-26 07:26 | XMS_ITS | Patient Health Record ---
Author Organization [facility] Address [address] [place], [place] [id number] Care Team Providers Care Fisher Hoop Net Name Role Phone Juhi Zuhair Primary Care Provider ZUHAIR GREEN Unavailable Unavailable Pacheco Gutierrez Unavailable [phone] Allergies No Known Allergies Results Component Value Reference Range Notes colonoscopy Reviewed date:10/31/2024 10:30:34 PM Interpretation:Numerous polyps Performing Lab: Notes/Report: Numerous polyps Urinalysis - Inhouse Reviewed date:2024 02:19:17 PM Interpretation: Performing Lab: Notes/Report: Color/Clarity yellow/clear Leuk Neg Nitrite Neg Urobili 3.2 Protein Neg pH 5.5 Blood Trace-Intact Sp. Gr. 1.025 Ketone Neg Bili Neg Gluc Neg Cologuard Reviewed date:05/24/2024 09:05:40 AM Interpretation:Positive Performing Lab: Notes/Report: Positive Cologuard Positive X ray : Spine, lumbosacral Reviewed date:08/28/2024 03:44:45 PM Interpretation: Performing Lab: Notes/Report: MRI : Spine, Lumbosacral, wi thout contrast Reviewed date:09/12/2024 09:37:05 AM Interpretation:Abnormal Performing Lab: Notes/Report: Abnormal P-Basic Metabolic Panel (BMP ) Reviewed date:12/07/2024 09:40:48 AM Interpretation:bun 24 Performing Lab: Notes/Report: Test performed by [facility] [address] [place] [address] , [address], [place] [address] Sebastian Motta MD, Physical Geographer CLIA: [id number] Sodium 138 135-145 mmol/L Potassium 4.6 3.5-5.3 mmol/L Chloride 105 97-108 mmol/L CO2 22 20-32 mmol/L Glucose 82 65-99 mg/dL BUN 24 8-23 mg/dL Creatinine 1.06 0.70-1.30 mg/dL Calcium 9.4 8.6-10.4 mg/dL eGFR by Creatinine 77 >59 mL/min/1.73m2 P-Lipid Panel Reviewed date:12/07/2024 09:40:48 AM Interpretation:chol 202, trigs 280, hdl 26, chol/hdl 7.77, non-hdl 176, ldl/hdl 4.6 Performing Lab: Notes/Report: Test performed by [facility], [address] , [facility], [place] [address] Sebastian Motta MD, Physical Geographer CLIA: [id number] Cholesterol 202 <200 mg/dL Triglycerides 280 <150 [...] Interpretation:Normal Performing Lab: Notes/Report: Test performed by [email or web address] [address] [place], [place] [id number] [place] , [address], [place] [address] Sebastian Motta MD, Physical Geographer CLIA: [id number] PSA 2.03 <4.00 ng/mL Please note this is an ultrasensitive PSA assay with a lower limit of detection of 0.014 ng/mL. This test is performed by the Brittany ECLIA methodology. Values obtained with different assay methods or kits cannot be directly compared. P-Microalbumin/Creatinine, R andom Urine Sample Reviewed date:12/07/2024 09:40:48 AM Interpretation:Normal Performing Lab: Notes/Report: Test performed by [email or web address] [address] [place] [address] , [address], [place] [address] Sebastian Motta MD, Physical Geographer CLIA: [id number] Albumin/Creatinine Ratio, Urine 3 0-30 ug/mg Microalbumin, Urine, Random 0.5 Creatinine, Urine 186.3 Pathology evaluation Reviewed date:08/11/2024 01:22:38 PM Interpretation:Negative, see colonoscopy Performing Lab: Notes/Report: Negative, see colonoscopy P-Comprehensive Metabolic Pa landon (CMP) Reviewed date:01/23/2025 09:50:12 AM Interpretation:Normal Performing Lab: Notes/Report: Test performed by [email or web address] [address] [place] [address] , [address], [place] [address] Sebastian Motta MD, Physical Geographer CLIA: [id number] Sodium 136 135-145 mmol/L Potassium 4.5 3.5-5.3 [...] 4.6 Performing Lab: Notes/Report: Test performed by [facility], [address] , [address], [place] [address] Sebastian Motta MD, Physical Geographer CLIA: [id number] Cholesterol 215 <200 mg/dL Triglycerides 202 <150 [...] Results: 144 Units: mg/dL % Change: +20% Reason For Referral Diagnosis 1 Lumbar spondylosis ( M47.816) Diagnosis 2 Lumbago with sciatic a, left side (M54.42) Diagnosis 3 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 Perez Referral Priority Routine Medications Medication SIG (Take, Route, Frequency, Duration) Notes Start Date End Date Status Rosuvastatin Calcium 10 MG 1 tablet Oral ly Once a day; Duration: 90 days 01/25/2025 Active Loratadine 10 MG 1 tablet Orally Once a day; Duration: 90 days 09/27/2023 Active Irbesartan 150 MG 1 tablet Orally Once a day; Duration: 90 days Active Montelukast Sodium 10 MG 1 tablet Orally Once a day; Duration: 90 days 09/27/2023 Active Sildenafil Citrate 50 MG 1 or 2 tab(s) o rally once a day as needed 07/09/2022 Active CPAP machine and supplies - as directed AutoPAP 10/30 as directed 03/03/2023 Active CPAP Supplies - as directed as directed 12/06/2024 Active Immunizations Vaccine Route Administration Date Status Comme nts COVID 19 Moderna Unknown 09/18/2020 Administered COVID 19 Moderna Unknown 10/23/2020 Administered COVID 19 Moderna Unknown 06/09/2021 Administered Fluzone High Dose (65yr and older) IM Intramuscular 04/15/2023 Administered Fluzone High Dose (65yr and older) IM Intramuscular 01/22/2025 Administered Prevnar (PCV20) IM Intramuscular 04/15/2023 Administered Tetanus Tdap-Adacel (over 7yrs) IM Intramuscular 11/05/2012 Administered Problems Problem Type SNOMED Code ICD Code Onset Dates Problem Status W/U Status Risk Notes Problem Essential hypertension (20968200) Essential hypertension (I10) Active confirmed Problem Hypertriglyceridemia (843102977) Hypertriglyceridemia (E78.1) Active confirmed Problem Obstructive sleep apnea (07817088) Obstructive sleep apnea (G47.33) Active confirmed Problem Mixed hyperlipidemia (673103531) Mixed hyperlipidemia (E78.2) Active confirmed Problem Sciatica (54017294) Lumbago with sciatica, left side (M54.42) Active confirmed Problem Chronic pain (46725408) Other chronic pain (G89.29) Active confirmed Problem Osteoarthritis of knee (372430383) Primary osteoarthritis of right knee (M17.11) Active confirmed Problem Osteoarthritis of knee (117159809) Primary osteoarthritis of left knee (M17.12) Active confirmed Problem Hypersomnia (07102514) Hypersomnia (G47.10) Active confirmed Problem Lumbar spondylosis (162076462) Lumbar spondylosis (M47.816) Active confirmed Problem Obesity (031719160) Non morbid o besity (E66.9) Active confirmed Problem Spinal stenosis of lumbar region (18532830) Spinal stenosis of lumbar region without neurogenic claudication (M48.061) Active confirmed Problem Allergic rhinitis (33575172) Allergic rhinitis, unspecified seasonality, unspecified trigger (J30.9) Active confirmed Problem Arthritis of left hi p (2050114533565347) Arthritis of left hip (M16.12) Active confirmed Problem Lumbar spinal stenosis (53656932) Lumbar foraminal stenosis (M48.061) Active confirmed Problem Degeneration of intervertebral disc of lumbar region with discogenic back pain and lower extremity pain (M51.362) Active confirmed Vital Signs Heart Rate 84 /min 01/22/2025 Blood pressure diastolic 80 mm Hg 01/22/2025 Height 70.50 in 01/22/2025 Blood pressure systolic 130 mm Hg 01/22/2025 Weight 267.0 lbs 01/22/2025 BMI 37.76 kg/m2 01/22/2025 Encounters Encounter Location Date Provider Diagnosis [facility] [address] [place] [id number] 2024 Zuhair Levels 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 [address] [place] [id number] 12/06/2024 Zuhair Levels Essential hypertensi on I10 ; Allergic rhinitis, unspecified seasonality, unspecified trigger J30.9 ; Obstructive sleep apnea G47.33 ; Non morbid obesity E66.9 and Prostate cancer screening Z12.5 [facility] [address] [facility] [address] [place], [place] [id number] 01/22/2025 Zuhair Levels Essential hypertensi on I10 ; Allergic rhinitis, unspecified seasonality, unspecified trigger J30.9 ; Obstructive sleep apnea G47.33 ; Personal history of nicotine dependence Z87.891 ; Screening for lung cancer Z12.2 ; Mixed hyperlipidemia E78.2 ; Hypertriglyceridemia E78.1 and Encounter for immunization Z23 [facility] [address] [facility] [address] [place], [place] [id number] 04/19/2024 R Jorge Matt Essential hypertensi on I10 [facility] [address] [facility] [address] [place], [place] [id number] 05/03/2024 R Jorge Matt [facility] [address] [place], [place] [id number] 05/11/2024 R Jorge Matt [facility] [address] [place], [place] [id number] 05/24/2024 Zuhair Levels Colon cancer screeni ng Z12.11 and Positive colorectal cancer screening using Cologuard test R19.5 [facility] [address] [place], [place] [id number] 08/28/2024 Zuhair Levels Lumbago with sciatic a, left side M54.42 ; Degeneration of intervertebral disc of lumbar region with discogenic back pain and lower extremity pain M51.362 ; Lumbar spondylosis M47.816 ; Lumbar foraminal stenosis M48.061 and Spinal stenosis of lumbar region without neurogenic claudication M48.061 [facility] [address] [facility] [address] [place], [place] [id number] 09/12/2024 Zuhair Levels [facility] [address] [facility] [address] [place], [place] [id number] 10/12/2024 Zuhair Levels Lumbar spondylosis M 47.816 ; Lumbago with sciatica, left side M54.42 ; Lumbar foraminal stenosis M48.061 ; Degeneration of intervertebral disc of lumbar region with discogenic back pain and lower extremity pain M51.362 and Spinal stenosis of lumbar region without neurogenic claudication M48.061 [facility] [address] [place] [id number] 12/07/2024 Zuhair Levels [facility] [address] [facility] [address] [place] [id number] 01/23/2025 Zuhair Velaberry Assessments Encounter Date Diagnosis (ICD Code) Assessment Notes Treatment Notes Treatment Clinical Notes Section Notes 05/24/2024 Colon cancer screeni ng (ICD-10 - Z12.11) 05/24/2024 Positive colorectal cancer screening using Cologuard test (ICD-10 - R19.5) 2024 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 (ICD-10 - Z02.4) 01/22/2025 Essential hypertensi on (ICD-10 - I10) 01/22/2025 Allergic rhinitis, unspecified seasonality, unspecified trigger (ICD-10 - J30.9) 12/06/2024 Essential hypertensi on (ICD-10 - I10) 12/06/2024 Allergic rhinitis, unspecified seasonality, unspecified trigger (ICD-10 - J30.9) 10/12/2024 Lumbago with sciatic a, left side (ICD-10 - M54.42) 10/12/2024 Lumbar spondylosis (ICD-10 - M47.816) 08/28/2024 Degeneration of intervertebral disc of lumbar region with discogenic back pain and lower extremity pain (ICD-10 - M51.362) 07/21/2024 Essential hypertensi on (ICD-10 - I10) 07/21/2024 Allergic rhinitis, unspecified seasonality, unspecified trigger (ICD-10 - J30.9) 04/19/2024 Essential hypertensi on (ICD-10 - I10) 08/28/2024 Lumbago with sciatic a, left side (ICD-10 - M54.42) 08/28/2024 Lumbar spondylosis (ICD-10 - M47.816) 07/21/2024 Obstructive sleep ap laura (ICD-10 - G47.33) 12/06/2024 Obstructive sleep ap laura (ICD-10 - G47.33) 10/12/2024 Lumbar foraminal stenosis (ICD-10 - M48.061) 01/22/2025 Obstructive sleep ap laura (ICD-10 - G47.33) 01/22/2025 Personal history of nicotine dependence (ICD-10 - Z87.891) 10/12/2024 Degeneration of intervertebral disc of lumbar region with discogenic back pain and lower extremity pain (ICD-10 - M51.362) 12/06/2024 Non morbid obesity (ICD-10 - E66.9) 07/21/2024 Lumbago with sciatic a, left side (ICD-10 - M54.42) 08/28/2024 Lumbar foraminal stenosis (ICD-10 - M48.061) 08/28/2024 Spinal stenosis of lumbar region without neurogenic claudication (ICD-10 - M48.061) 07/21/2024 Non morbid obesity (ICD-10 - E66.9) 10/12/2024 Spinal stenosis of lumbar region without neurogenic claudication (ICD-10 - M48.061) 12/06/2024 Prostate cancer screening (ICD-10 - Z12.5) 01/22/2025 Screening for lung cancer (ICD-10 - Z12.2) 01/22/2025 Mixed hyperlipidemia (ICD-10 - E78.2) 01/22/2025 Hypertriglyceridemia (ICD-10 - E78.1) 01/22/2025 Encounter for immunization (ICD-10 - Z23) 07/21/2024 Other Patient will return to the office when fasting sometime in the next few months Plan Of Treatment Pending Test Test Name Order Date CT Scan : Chest, low dose 01/22/2025 Next Appt Details Provider Name:Zuhair guthrie, 2025 09:15:00 AM, [address], [address], [place], [phone], Provider Name:Zuhair guthrie, 07/23/2025 09:15:00 AM, [address], [address], [place], [id number], Insurance Providers Payer Name Payer Address Payer Phone Subscriber Number Group Number Insured Name Patient Relationship to Insured Coverage Start Date Coverage End Date [employer] [address] [place] [address] [id number] MADALYNARACELIS Self - patient is the insured MEDICARE PART B [address] [address] [place] [address] [id number] ARACELIS BERGMAN Self - patient is the [...]
== END 2025-01-26 23:59 | disposition home or self-care (01) ==
PROVIDERS: PCP Family Medicine; Visit Provider Family Medicine
DX: Z12.2 Encounter for screening for malignant neoplasm of respiratory organs (principal); R91.1 Solitary pulmonary nodule; F17.210 Nicotine dependence, cigarettes, uncomplicated; I25.10 Atherosclerotic heart disease of native coronary artery without angina pectoris
CPT/HCPCS: 71271

== ENCOUNTER 2025-02-06 09:39 | Day surgery (SDC) | payer BC, SELFPAY ==
[2025-02-06 09:48] VITALS: BP 141/78; PULSE 75; RESP 16; O2SAT 94; BMI 36.9
--- NOTE | 2025-02-06 10:01 | EXP.PAIN.PRO ---
Procedure Date: 02/06/25 Time: 09:45 Anesthesiologist:: [facility] CRNA Complications:: None Pre-procedure Diagnosis:: Yes lumbar spine multilevels. Lumbar radiculopathy. Post-procedure Diagnosis:: Same. Indications for Procedure:: Patient is a very pleasant 69-year-old male who comes our clinic today for lumbar epidural steroid injection. Patient describes low lumbar back pain as constant, dull, aching. Patient also reports bilateral hip and leg radicular symptoms at times. He rates his pain 6/10. Procedure Details:: Procedure: Lumbar epidural steroid injection under fluoroscopy Informed consent was obtained and the risks and benefits of the procedure were explained to the patient. The patient was taken to the procedure room and noninvasive monitors placed, including noninvasive blood pressure cuff and pulse oximeter. The back was viewed using C-arm Fluoroscopy and prepped using Chloraprep as a cleansing solution and the L4-L5 interspace was palpated. Skin and subcutaneous tissues were anesthetized using lidocaine 1.5% and a 25-gauge needle. After this, an 18-gauge Touhy epidural needle was placed into the L4-L5 interspace and advanced using fluoroscopic guidance and loss of resistance to air until the epidural space was encountered. After confirmation of needle placement in the epidural space, with dye, a solution containing normal saline, 3 mL and dexamethasone 10 mg were incrementally injected into the lumbar epidural space. The patient tolerated the procedure well with no complications. The patient was observed in the Pain Clinic and then discharged home neurologically intact. Plan and Disposition:: Patient was discharged without incident.
[2025-02-06 10:02] VITALS: BP 167/89; PULSE 74; RESP 18; O2SAT 93
[2025-02-06] MEDS: DEXAMETHASONE 10MG/ML 1ML VIAL 10 MG (10:02)
[2025-02-06 10:04] VITALS: BP 167/89; PULSE 80; RESP 18; O2SAT 93
[2025-02-06 10:15] VITALS: BP 121/78; PULSE 71; RESP 16; O2SAT 92
== END 2025-02-06 10:17 | disposition home or self-care (01) ==
PROVIDERS: PCP Family Medicine; Visit Provider Nurse Anesthetist, Certified Registered
DX: M54.16 Radiculopathy, lumbar region (principal); I10 Essential (primary) hypertension; F17.200 Nicotine dependence, unspecified, uncomplicated; Z79.899 Other long term (current) drug therapy
CPT/HCPCS: 62323; J1100

== ENCOUNTER 2025-04-10 09:32 | Day surgery (SDC) | payer BC, SELFPAY ==
[2025-04-10 09:40] VITALS: BP 121/72; PULSE 68; RESP 16; O2SAT 96; BMI 36.2
[2025-04-10] MEDS: BUPIVACAINE 0.25% 10ML INJ 25 MG IJ (09:58)
[2025-04-10] MEDS: LIDOCAINE 1% 5ML PF VIAL 5 ML (09:59)
[2025-04-10] MEDS: DEXAMETHASONE 10MG/ML 1ML VIAL 10 MG (09:59)
[2025-04-10 10:00] VITALS: BP 121/72; PULSE 68; RESP 18; O2SAT 96
[2025-04-10 10:01] VITALS: BP 121/72; PULSE 68; RESP 18; O2SAT 96
--- NOTE | 2025-04-10 10:04 | EXP.PAIN.PRO ---
Procedure Date: 04/10/25 Time: 09:50 Anesthesiologist:: Emory [facility] CRNA Complications:: None Pre-procedure Diagnosis:: DJD left hip. Chronic left hip pain. Post-procedure Diagnosis:: Same. Indications for Procedure:: Patient is a very pleasant 69-year-old male who comes our clinic today for a left intra-articular hip injection of cortisone and local anesthetic. Patient describes left anterior hip pain as constant, dull, aching. He has difficulty with hip abduction. Patient reports he has difficulty with ambulation due to the left anterior hip pain. He rates his pain 7/10. Procedure Details:: Details of the procedure were explained to the patient. The patient was taken to procedure room placed in the supine position. The area over the left hip was cleaned using chlorhexidine as a cleansing solution. Using fluoroscopy guidance a 3 and half inch 22-gauge spinal needle was used to access the left hip joint without difficulty. After negative aspiration 3 cc of 1% lidocaine +3 cc of 0.25% Marcaine and 10 mg of dexamethasone was injected. Needle was withdrawn. Band-Aid applied. Patient tolerated procedure without difficulty. There are no complications. Plan and Disposition:: Patient was discharged without incident.
[2025-04-10 10:24] VITALS: BP 108/75; PULSE 79; RESP 16; O2SAT 97
== END 2025-04-10 10:24 | disposition home or self-care (01) ==
PROVIDERS: PCP Family Medicine; Visit Provider Nurse Anesthetist, Certified Registered
DX: M46.1 Sacroiliitis, not elsewhere classified (principal); F41.9 Anxiety disorder, unspecified; F32.A Depression, unspecified; G43.909 Migraine, unspecified, not intractable, without status migrainosus; M79.7 Fibromyalgia; K21.9 Gastro-esophageal reflux disease without esophagitis; Z56.0 Unemployment, unspecified
CPT/HCPCS: G0260; J0665; J1100; J2003